=== PATIENT | female | born 1955 | race African-American/Black ===

== ENCOUNTER 2024-01-11 12:22 | Outpatient (AMB) | payer MEDICARE, MEDICAID, SELFPAY ==
[2024-01-11 12:25] VITALS: BP 110/84; PULSE 87; O2SAT 97; BMI 26.1
--- NOTE | 2024-01-11 12:25 | HO.NEPHOV_ITS ---
HPI HPI Comments History of Present Illness Details Jessica is a middle-aged woman with a history of bipolar disorder and she has been on lithium for a long time. She has chronic kidney disease and he is here for regular follow-up. She is history of COPD and she continues to smoke. History of cocaine use in the past. Next day of longstanding hypertension obesity. She is waiting dental extraction and needs renal clearance. [facility] Surgical History (Updated 01/11/24 @ 12:28 by Sravanthi Goodman) H/O laminectomy (~04/2023) Social History (Updated 01/11/24 @ 12:29 by Sravanthi Goodman) Patient Tobacco Use Status: Current someday Tobacco user Tobacco use type: Cigarette Use of substances other than those prescribed or required for medical reasons: No Vital Signs 01/11/24 12:25 Height 5 ft 9 in Weight 177 lb BMI 26.1 BP 110/84 Blood Pressure Location Lt brachial Position Sitting Pulse 87 Pulse Source Pulse Oximeter Pulse Oximetry (%) 97 Oxygen Delivery Method Room Air Physical Exam Vital Signs: Last Vital Signs Pulse 87 01/11/24 12:25 BP 110/84 01/11/24 12:25 Pulse Ox 97 01/11/24 12:25 Oxygen Delivery Method Room Air 01/11/24 12:25 BMI result Body Mass Index 26.1 Const General: comfortable Nutritional Appearance: well nourished Orientation/consciousness: patient oriented x3 HEENT Head: No normal to inspection Mouth: moist mucous membranes Neck Neck: Yes supple and Yes no JVD Resp Auscultation: clear to auscultation bilaterally, no rales and rub present Cardio Jugular venous distension: no JVD Palpation: no palpable S3 and no palpable S4 Heart sounds: no rubs GI Palpation (GI): Soft to palpation and nontender Percussion: No Fluid wave present General: Yes no CVA tenderness Back/Spine/Pelvis Back: no CVA tenderness Skin General skin exam: no rashes or lesions noted Neuro General: patient oriented x3 Extrem General: Yes no pedal edema and No clubbing Assessment & Plan Assessment & Plan (1) CKD (chronic kidney disease) stage 3, GFR 30-59 ml/min: Comment: 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 This is probably her baseline. Goal is to slow the progression of renal disease Continue to avoid nephrotoxic agents including NSAIDs. Keep intake more than output. She is currently on lithium. However renal function stable we will continue to monitor closely. (2) HTN (hypertension): Code(s): I10 - Essential (primary) hypertension Plan: Blood pressure is well controlled She is seen low-sodium diet Discussed weight loss. No changes were made to the antihypertensive regimen. Plan Note. From a renal standpoint there is no absolute contraindication for dental extraction. Orders: Orders Basic Metabolic Panel 3 Months I10 - Essential (primary) hypertension, N18.30 - Chronic kidney disease, stage 3 unspecified Complete Blood Count no Diff 3 Months I10 - Essential (primary) hypertension, N18.30 - Chronic kidney disease, stage 3 unspecified Coding Level of Care Code Est Pt Level 4 (33825) Diagnoses CKD (chronic kidney disease) stage 3, GFR 30-59 ml/min N18.30 HTN (hypertension) I10 Results Reviewed Results Reviewed: March 2023 - Cr 1.4 eGFR : 42 ml/mt Nephrology Results: No Data to Display
== END 2024-01-11 12:55 | disposition home or self-care (01) ==
PROVIDERS: PCP Nurse Practitioner Family; Visit Provider Internal Medicine Hypertension Specialist
DX: N18.30 Chronic kidney disease, stage 3 unspecified (principal); I10 Essential (primary) hypertension
CPT/HCPCS: 99214

== ENCOUNTER → 2024-01-11 12:22 | Outpatient (BNVA) | payer MEDICARE, MEDICAID, SELFPAY | PROVIDERS: PCP Nurse Practitioner Family; Visit Provider Internal Medicine Hypertension Specialist | DX: I10 Essential (primary) hypertension (principal); N18.30 Chronic kidney disease, stage 3 unspecified | CPT/HCPCS: 99212 ==

== ENCOUNTER 2024-12-02 11:29 | Outpatient (AMB) | payer MEDICARE, MEDICAID, SELFPAY ==
--- NOTE | 2024-12-02 10:52 | HO.NEPHOV ---
Vital Signs 12/02/24 11:34 Height 5 ft 9 in Weight 175 lb BMI 25.8 BP 170/108 H Blood Pressure Location Lt brachial Position Sitting Intake Visit Reasons: Follow up/ Conf Managed Security Sales Consultant Required: No Accompanied by: Care Corrdinator Allergies codeine Allergy (Unknown, Verified 12/02/24 11:38) Unknown Penicillins Allergy (Unknown, Verified 12/02/24 11:38) Unknown Medication List - Last Reconciled 12/02/24 by Wero Mensah MD albuterol sulfate 90 mcg/actuation inhalation PRN alprazolam mg PO TID PRN aspirin 81 mg PO DAILY atorvastatin 40 mg PO DAILY lithium carbonate 300 mg PO BID losartan 50 mg PO DAILY omeprazole 20 mg PO BID PRN tramadol 50 mg PO BID PRN umeclidinium 62.5 mcg/actuation (Incruse Ellipta) 1 inh inhalation DAILY HPI Comments Details: Jessica is a middle-aged woman with a history of bipolar disorder and she has been on lithium for a long time. She has chronic kidney disease and he is here for regular follow-up. She is history of COPD and she continues to smoke. History of cocaine use in the past. Next day of longstanding hypertension obesity. She comes to follow up after year. Blood pressure has been elevated at pulmonary rehab. Systolic blood pressure has been more than 200 mm Hg. She is not sure what medication she is on. [facility] Surgical History H/O laminectomy (~04/2023) Social History Patient Tobacco Use Status: Current someday Tobacco user Tobacco use type: Cigarette Physical Exam Vital Signs: Last Vital Signs BP 170/108 H 12/02/24 11:34 BMI result Body Mass Index 25.8 Const General: comfortable Nutritional Appearance: well nourished Orientation/consciousness: patient oriented x3 HEENT Head: No normal to inspection Mouth: moist mucous membranes Neck Neck: Yes supple and Yes no JVD Resp Auscultation: clear to auscultation bilaterally and no rales Cardio Jugular venous distension: no JVD Palpation: no palpable S3 and no palpable S4 Heart sounds: no rubs GI Palpation (GI): Soft to palpation and nontender Percussion: No Fluid wave present General: Yes no CVA tenderness Back/Spine/Pelvis Back: no CVA tenderness Skin General skin exam: no rashes or lesions noted Neuro General: patient oriented x3 Extrem General: Yes no pedal edema and No clubbing Results Reviewed Nephrology Results: Hgb 14.3 g/dl (12.0-16.0) 12/02/24 WBC 3.9 X10*3/uL (4.8-10.8) L 12/02/24 Plt Count 200 X10*3/uL (160-400) 12/02/24 Sodium 139 mmol/L (135-145) 12/02/24 Potassium 3.8 mmol/L (3.3-5.1) 12/02/24 Chloride 106 mmol/L (96-108) 12/02/24 Carbon Dioxide 23 mmol/L (22-29) 12/02/24 BUN 16 mg/dL (9-16) 12/02/24 Creatinine 1.31 mg/dL (0.5-1.4) 12/02/24 Calcium 9.3 mg/dL (8.4-10.2) 12/02/24 Assessment & Plan Assessment & Plan (1) HTN (hypertension): Code(s): I10 - Essential (primary) hypertension Category: Medical Plan: Blood pressure is well controlled She is seen low-sodium diet Discussed weight loss. No changes were made to the antihypertensive regimen. 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 Keep intake more than output. She is currently on lithium. However renal function stable we will continue to monitor closely. Plan Obtain 24 hour ambulatory blood pressure monitoring and readjust medications. I have asked her to bring all her medications tomorrow Orders: Orders Comprehensive Met. Panel 12/02/24 I10 - Essential (primary) hypertension, N18.30 - Chronic kidney disease, stage 3 unspecified Complete Blood Count no Diff 12/02/24 I10 - Essential (primary) hypertension, N18.30 - Chronic kidney disease, stage 3 unspecified AMB 24 HR B/P Monitor PLACEMENT 12/02/24 I10 - Essential (primary) hypertension Coding Level of Care Code Est Pt Level 4 (01291) Diagnoses HTN (hypertension) I10 CKD (chronic kidney disease) stage 3, GFR 30-59 ml/min N18.30
[2024-12-02 11:34] VITALS: BP 170/108; BMI 25.8
--- OUTSIDE RECORDS SUMMARY | 2024-12-02 13:42 | XMS_ITS | Clinical Summary ---
Author Organization [facility] Address [address] [place] [address] Care Team Providers Care Copyright Clerk Name Role Phone Unavailable Primary Care Provider Unavailabl e Source Comments PLEASE NOTE, if this patient is a minor, it may be UNLAWFUL to discuss sensitive information that is contained in these records (such as FAMILY PLANNING, MENTAL HEALTH or SUBSTANCE ABUSE) with the minor patient's parent or other person without the patient's specific authorization.[facility] Allergies Active Allergy Reactions Criticality Noted Date Comments Penicillins Rash,Swelling 02/18/2022 Social History Tobacco Use Types Packs/Day Years Used Date Smoking Tobacco: Never Assessed Social Connections Answer Date Recorded Connectedness 0 06/14/2024 Financial Resource Strain Answer Date R ecorded Financial Resource Strain 0 2021 Stress Answer Date Recorded Stress 0 02/18/2022 Physical Activity Answer Date Recorded Physical Activity 0 02/18/2022 Food Insecurity Answer Date Recorded Food 0 06/27/2024 Transportation Needs Answer Date Record ed Transportation 0 02/18/2022 Housing Stability Answer Date Recorded Housing 0 02/18/2022 Safety and Environment Answer Date Wilber rded Safety 0 02/18/2022 Utilities Answer Date Recorded Utilities 0 02/18/2022 Employment Answer Date Recorded Stress 0 06/14/2024 Comments Unknown Sex and Gender Information Value Date Recorded Sex Assigned at Not on file Legal Sex Female 6:41 AM PDT Gender Identity Not on file Sexual Orientation Not on file Last Filed Vital Signs Vital Sign Reading Time Taken Comments Blood Pressure 238/148 02/18/2022 10:30 AM EDT Pulse 71 02/18/2022 10:30 AM EDT Temperature - - Respiratory Rate - - Oxygen Saturation - - Inhaled Oxygen Concentration - - Weight - - Height - - Body Mass Index - - Plan of Treatment Health Maintenance Due Date Last Done Comments Diabetes Screening 1954 Hepatitis C Screening 1954 Lipid Screening 1954 Tobacco Screening 1954 Annual Preventive Care Visit 1972 Breast Cancer Screening (Mammogram) 1994 CT Colonography 1999 Colonoscopy 1999 Colorectal Cancer Screening 1999 FIT/gFOBT 1999 Fecal DNA 1999 Flexible Sigmoidoscopy 1999 Imm-Pneumococcal 65+ (2 of 2 - PCV) 2004 05/30/2002 Imm-Zoster, Recombinant (2 of 3) 12/19/2015 10/24/19 16 Bone Density Screening 2019 Falls Prevention 2019 Imm-DTaP/Tdap/Td (2 - Td or Tdap) 03/26/2022 012 Hypertension Screening (#1) 02/18/2023 Xuy-ORHSL-25 ( - season) 2024 Imm-Influenza (#1) 2024 07/01/2020, 1 , 08/10/2018, Additional history exists Alcohol and Drug Screen 10/02/2024 Depression Annual Screen 10/02/2024 Insurance [employer] Member Subscriber Plan / Payer (Ef fective 2022-Present) Name:Yung Giangaine Relation to Subscriber:Self Name:Rahat Jessica Payer ID:[id number] Group ID:Not on file Type:Indemnity Address: [place] [address] [place] [address] MEDICAID DENTAL FORMERLY [facility]
--- OUTSIDE RECORDS SUMMARY | 2024-12-02 13:42 | XMS_ITS | Clinical Summary ---
Author Organization [facility], Address [address] [place] [address] [place] [address] Phone Care Team Providers Care Crate Tier Name Role Phone Jason, Natividad OSMANY Primary Care Provider [phone] Allergies Active Allergy Reactions Criticality Noted Date Comments Codeine Other (see comments) 01/12/2021 Penicillins Other (see comments) 01/12/2021 Medications zolpidem (AMBIEN) 10 MG tablet zolpidem 10 mg tablet Active lithium 300 MG capsule lithium carbonate 300 mg capsule Active hydroCHLOROthia zide (HYDRODIURIL) 25 MG tablet Take 50 mg by mouth 1 (one) time each day Active Butalbital-APAP -Caffeine 50-300-40 MG capsule butalbital-aceta minophen-caffein e 50 mg-300 mg-40 mg capsule Active ALPRAZolam (XANAX) 2 MG tablet alprazolam 2 mg tablet Active senna (SENOKOT) 8.6 MG tablet senna 8.6 mg tablet TAKE 2 TABLETS BY MOUTH EVERY NIGHT AT BEDTIME NEEDED FOR CONSTIPATION Active Azelastine HCl 0.15 % solution Administer into affected nostril(s) 1 (one) time each day if needed 9 Active cetirizine (ZyrTEC) 10 MG tablet Take 10 mg by mouth 9 Active NIFEdipine XL (PROCARDIA XL) 90 MG 24 hr tablet Take 90 mg by mouth 1 (one) time each day 2 Active atorvastatin (LIPITOR) 40 MG tablet Take 40 mg by mouth 1 (one) time each day 2 Active traMADol (ULTRAM) 50 MG tablet Take 50 mg by mouth every 12 (twelve) hours if needed Active Active Problems Problem Noted Date Diagnosed Date Obesity 12/22/2021 Bipolar disorder 12/22/2021 Allergic rhinitis 12/22/2021 Hypercholesterolemia 12/22/2021 Malignant hypertension 12/22/2021 Migraine 12/22/2021 Sleep apnea 12/22/2021 Tubular adenoma of colon 12/22/2021 On lithium 05/26/2021 Chronic kidney disease stage 3 01/12/2021 Lumbar spondylosis 12/05/2016 Hypertension 06/17/2014 Musculoskeletal chest pain 02/05/2013 Encounters Date Type Department Care Team Description 10/04/2024 Documentation Only [facility] [address] [place] [address] Dominga Torres MA 10/03/2024 Documentation Only [facility] [address] [place] [address] Dominga Torres MA from Last 3 Months Family History Relation Status Comments Father Unknown Social History Tobacco Use Types Packs/Day Years Used Date Smoking Tobacco: Some Days Smokeless Tobacco: Never Tobacco Cessation:Ready to Q uit: Not Asked; Counseling Given: Not Answered Alcohol Use Standard Drinks/Week Comments No 0 (1 standard drink = 0.6 oz pur e alcohol) Comments Unknown Sex and Gender Information Value Date Recorded Sex Assigned at Not on file Legal Sex Female 5:23 PM EST Gender Identity Not on file Sexual Orientation Not on file Last Filed Vital Signs Vital Sign Reading Time Taken Comments Blood Pressure 162/98 03/15/2023 3:02 PM EDT Pulse 56 03/15/2023 3:02 PM EDT Temperature - - Respiratory Rate - - Oxygen Saturation 93% 03/15/2023 3:02 PM EDT Inhaled Oxygen Concentration - - Weight 77.6 kg (171 lb) 03/15/2023 3:02 PM EDT Height 175.3 cm (5' 9 ) 03/15/2023 3:02 PM EDT Body Mass Index 25.25 03/15/2023 3:02 PM EDT Plan of Treatment Upcoming Encounters Date Type Department Care Team (Late st Contact Info) Description 02/17/2025 2:00 PM EDT Office Visit [facility], [address] [facility] [place] [address] Jovanni Camargo MD [address] [place] [id number] Health Maintenance Due Date Last Done Comments Breast Cancer Screening 1954 Colorectal Cancer Screening: Annual FOBT 2003 Colorectal Cancer Screening: Colonoscopy 2003 Colorectal Cancer Screening: Sigmoidoscopy 2003 Pneumococcal Vaccine: 65+ Ye ars (2 of 2 - PCV) 05/30/2003 05/30/2002 Influenza Vaccine (#1) 2024 Hepatitis B Vaccine Aged Out No longe r eligible based on patient's age to complete this topic Insurance [place] Sub[place] Plan / Payer (Ef fective 2021-Present) Name:Jessica Giang Relation to Subscriber:Self Name:Jessica Giang Payer ID:Not on file Group ID:Not on file Type:Not on file Address: [place] [id number] MED[place]ID [place] Member Subscriber Plan / Payer ( fective 2024-Present) Name:Jessica Giang Relation to Subscriber:Self Name:Jessica Giang Payer ID:Not on file Group ID:Not on file Type:Not on file Address: [place] [id number] MEDICARE Care Teams Crate Tier Relationship Specialty Start Date End Date Natividad Gomez NP [address] [place] [address] [phone] PCP - General Nurse Practitioner 12/22/21
--- OUTSIDE RECORDS SUMMARY | 2024-12-02 13:42 | XMS_ITS | Encounter Summary ---
Author Organization [facility] Address [address] [place] [address] Phone Care Team Providers Care Gleason Operator Name Role Phone Natividad Gomez MERCHANDISE EXECUTIVE Primary Care Provider [phone] Encounter Details Date Type Department Care Team (Late Contact Info) Description 10/04/2024 Documentation Only [facility] [address] [place] [address] Dominga Torres [place] [address] [place] [address] Social History Tobacco Use Types Packs/Day Years Used Date Smoking Tobacco: Some Days Smokeless Tobacco: Never Alcohol Use Standard Drinks/Week Comments No 0 (1 standard drink = 0.6 oz pur e alcohol) Comments Unknown Sex and Gender Information Value Date Recorded Sex Assigned at Not on file Legal Sex Female 5:23 PM EST Gender Identity Not on file Sexual Orientation Not on file documented as of this encounter Plan of Treatment Upcoming Encounters Date Type Department Care Team (Late Contact Info) Description 02/17/2025 2:00 PM EDT Office Visit [facility] [address] [place] [address] Jovanni Camargo MD [address] [facility] [place] [address] documented as of this encounter Visit Diagnoses Not on filedocumented in this encounter Care Teams Gleason Operator Relationship Specialty Start Date End Date Natividad Gomez NP [address] [place] [id number] PCP - General Nurse Practitioner 12/22/21 documented as of this encounter
--- OUTSIDE RECORDS SUMMARY | 2024-12-02 13:42 | XMS_ITS | Encounter Summary ---
Author Organization [facility] Address [address] [place] [address] Phone Care Team Providers Care Nurse Quality Name Role Phone Natividad Gomez SALES TEACHER Primary Care Provider [phone] Encounter Details Date Type Department Care Team (Late Contact Info) Description 10/03/2024 Documentation Only [facility] [address] [place] [address] Dominga Torres [place] [address] [place] [address] Social History Tobacco Use Types [...] Visit [facility] [address] [address] Jovanni Camargo MD [address] [facility] [address] [place] [address] documented as of this encounter Visit Diagnoses Not on filedocumented in this encounter Care Teams Nurse Quality Relationship Specialty Start Date End Date Natividad Gomez NP [address] [place] [id number] PCP - General Nurse Practitioner 12/22/21 documented as of this encounter
--- OUTSIDE RECORDS SUMMARY | 2024-12-02 13:42 | XMS_ITS | Clinical Summary ---
Author Organization [facility] Address [address] [place] [address] Care Team Providers Care Terrazzo Laborer Name Role Phone Unavailable Primary Care Provider Unavailabl e Social History Tobacco Use Types Packs/Day Years Used Date Smoking Tobacco: Never Assessed Comments Unknown Sex and Gender Information Value Date Recorded Sex Assigned at Not on file Legal Sex Female 9:45 AM EST Gender Identity Not on file Sexual Orientation Not on file Plan of Treatment Health Maintenance Due Date Last Done Comments Breast Cancer Screening 1954 DTaP,Tdap,and Td Vaccines (1 - Tdap) 1973 Pneumococcal Vaccine: 50+ Ye ars (1 of 1 - PCV) 2004 Zoster Vaccines (1 of 2) 2004 COVID-19 Vaccine (2023-2 5 season) 2024 Influenza Vaccine (#1) 2024 RSV Immunization Patients 60 + Years Old (1 - 1-dose 75+ series) 2029 HIB Vaccines Aged Out No longer eligi ble based on patient's age to complete this topic HPV Vaccines Aged Out No longer eligi ble based on patient's age to complete this topic Hepatitis A Vaccines Aged Out No long er eligible based on patient's age to complete this topic Hepatitis B Vaccines Aged Out No long er eligible based on patient's age to complete this topic IPV Vaccines Aged Out No longer eligi ble based on patient's age to complete this topic MMR Vaccines Aged Out No longer eligi ble based on patient's age to complete this topic Meningococcal ACWY Vaccine Aged Out N o longer eligible based on patient's age to complete this topic Meningococcal B Vacine Aged Out No lo nger eligible based on patient's age to complete this topic RSV Immunization Patients Un elizabeth 20 months Aged Out No longer eligible b ased on patient's age to complete this topic Varicella Vaccines Aged Out No longer eligible based on patient's age to complete this topic
== END 2024-12-02 12:14 | disposition home or self-care (01) ==
PROVIDERS: PCP Nurse Practitioner Family; Visit Provider Internal Medicine Hypertension Specialist
DX: I10 Essential (primary) hypertension (principal); N18.30 Chronic kidney disease, stage 3 unspecified
CPT/HCPCS: 99214

== ENCOUNTER 2024-12-02 12:21 | Outpatient (REF) | payer MEDICARE, MEDICAID, SELFPAY ==
[2024-12-02 13:01] LABS: Hematocrit 42.6 % (37.0-47.0); Hemoglobin 14.3 g/dl (12.0-16.0); Mean Corpuscular HGB Conc 33.6 g/dl (31.0-35.0); Mean Corpuscular Hemoglobin 32.6 pg (27.0-33.0); Mean Platelet Volume 10.1 fL (9.4-12.3); Platelet Count 200 X10*3/uL (160-400); Red Blood Count 4.39 X10*6/uL (4.20-5.50); Red Cell Distribution Width 13.1 % (11.0-16.0); White Blood Count 3.9 X10*3/uL (4.8-10.8)
[2024-12-02 13:14] LABS: Alanine Aminotransferase 15 U/L (0-31); Albumin Level 4.4 g/dL (3.5-5.0); Alkaline Phosphatase 165 U/L (39-117); Anion Gap 14 (12-20); Aspartate Amino Transferase 27 U/L (5-31); Bilirubin Total 0.9 mg/dL (0.0-1.0); Blood Urea Nitrogen 16 mg/dL (9-16); Calcium 9.3 mg/dL (8.4-10.2); Carbon Dioxide 23 mmol/L (22-29); Chloride 106 mmol/L (96-108); Estimated Glomerular Filt Rate 40; Glucose Random 83 mg/dL (60-115); Potassium 3.8 mmol/L (3.3-5.1); Sodium 139 mmol/L (135-145); Total Protein 7.9 g/dL (6.5-8.0)
== END 2024-12-02 12:22 | disposition home or self-care (01) ==
LOC: HO.10HDL 12:21
PROVIDERS: Visit Provider Internal Medicine Hypertension Specialist
DX: I10 Essential (primary) hypertension (principal); N18.30 Chronic kidney disease, stage 3 unspecified
CPT/HCPCS: 36415; 80053; 85027; 99212

== ENCOUNTER → 2024-12-03 11:55 | Outpatient (BNVA) | payer MEDICARE, MEDICAID, SELFPAY | PROVIDERS: PCP Nurse Practitioner Family; Visit Provider Internal Medicine Hypertension Specialist | DX: I12.9 Hypertensive chronic kidney disease with stage 1 through stage 4 chronic kidney disease, or unspecified chronic kidney disease (principal); N18.30 Chronic kidney disease, stage 3 unspecified | CPT/HCPCS: 93786; 93788; 99212 ==

== ENCOUNTER 2024-12-03 12:03 | Outpatient (AMB) | payer MEDICARE, MEDICAID, SELFPAY ==
--- NOTE | 2024-12-03 12:04 | HO.NEPHOV_ITS ---
Vital Signs 12/03/24 12:04 Height 5 ft 9 in Intake Visit Reasons: BPM results Petroleum Production Engineer Required: No Accompanied by: Self / Same As Patient Allergies codeine Allergy (Unknown, Verified 12/02/24 11:38) Unknown Penicillins Allergy (Unknown, Verified 12/02/24 11:38) Unknown Medication List - Last Reconciled 12/03/24 by Wero Mensah MD albuterol sulfate 90 mcg/actuation inhalation PRN alprazolam mg PO TID PRN aspirin 81 mg PO DAILY atorvastatin 40 mg PO DAILY lithium carbonate 300 mg PO BID losartan 50 mg PO BID omeprazole 20 mg PO BID PRN tramadol 50 mg PO BID PRN umeclidinium 62.5 mcg/actuation (Incruse Ellipta) 1 inh inhalation DAILY HPI Comments Details: Jessica is a middle-aged woman with a history of bipolar disorder and she has been on lithium for a long time. She has chronic kidney disease and he is here for regular follow-up. She is history of COPD and she continues to smoke. History of cocaine use in the past. Next day of longstanding hypertension obesity. She comes to follow up after year. Blood pressure has been elevated at pulmonary rehab. Systolic blood pressure has been more than 200 mm Hg. She is not sure what medication she is on. 12/03/2024. Jessica underwent 24 hour ambulatory blood pressure monitoring. She brought in all her medications. She is on losartan 50 mg q.d.. She takes hydrochlorothiazide. Dosage unknown. She is not on any other antihypertensive medication. [facility] Surgical History H/O laminectomy (~04/2023) Social History Patient Tobacco Use Status: Current someday Tobacco user Tobacco use type: Cigarette Physical Exam Const General: comfortable Nutritional Appearance: well nourished Orientation/consciousness: patient oriented x3 HEENT Head: No normal to inspection Mouth: moist mucous membranes Neck Neck: Yes supple and Yes no JVD Resp Auscultation: clear to auscultation bilaterally and no rales Cardio Jugular venous distension: no JVD Palpation: no palpable S3 and no palpable S4 Heart sounds: no rubs GI Palpation (GI): Soft to palpation and nontender Percussion: No Fluid wave present General: Yes no CVA tenderness Back/Spine/Pelvis Back: no CVA tenderness Skin General skin exam: no rashes or lesions noted Neuro General: patient oriented x3 Extrem General: Yes no pedal edema and No clubbing Results Reviewed Nephrology Results: Hgb 14.3 g/dl (12.0-16.0) 12/02/24 WBC 3.9 X10*3/uL (4.8-10.8) L 12/02/24 Plt Count 200 X10*3/uL (160-400) 12/02/24 Sodium 139 mmol/L (135-145) 12/02/24 Potassium 3.8 mmol/L (3.3-5.1) 12/02/24 Chloride 106 mmol/L (96-108) 12/02/24 Carbon Dioxide 23 mmol/L (22-29) 12/02/24 BUN 16 mg/dL (9-16) 12/02/24 Creatinine 1.31 mg/dL (0.5-1.4) 12/02/24 Calcium 9.3 mg/dL (8.4-10.2) 12/02/24 Assessment & Plan Assessment & Plan (1) HTN (hypertension): Code(s): I10 - Essential (primary) hypertension Category: Medical Plan: Blood pressure is suboptimal Based on 24 hour ABP M I will increase losartan to 50 mg b.i.d.. Keep on hydrochlorothiazide 25 mg daily. 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 Keep intake more than output. She is currently on lithium. However renal function stable we will continue to monitor closely. Medications: New losartan 50 mg PO BID 180 tabs 1RF Coding Level of Care Code Est Pt Level 4 (54358) Diagnoses HTN (hypertension) I10 CKD (chronic kidney disease) stage 3, GFR 30-59 ml/min N18.30
== END 2024-12-03 12:16 | disposition home or self-care (01) ==
LOC: HO.HKA 12:03
PROVIDERS: PCP Nurse Practitioner Family; Visit Provider Internal Medicine Hypertension Specialist
DX: I10 Essential (primary) hypertension (principal); N18.30 Chronic kidney disease, stage 3 unspecified
CPT/HCPCS: 99214

== ENCOUNTER 2024-12-17 13:28 | Outpatient (AMB) | payer MEDICARE, MEDICAID, SELFPAY ==
[2024-12-17 13:28] VITALS: BP 142/88; BMI 25.7
--- NOTE | 2024-12-17 13:28 | HO.NEPHOV ---
Vital Signs 12/17/24 13:28 Height 5 ft 9 in Weight 174 lb BMI 25.7 BP 142/88 H Blood Pressure Location Rt brachial Position Sitting Pulse Source Pulse Oximeter Oxygen Delivery Method Room Air Intake Visit Reasons: 2 weeks fu/ Conf Engagement Engineer Required: No Accompanied by: Self / Same As Patient Allergies codeine Allergy (Unknown, Verified 12/17/24 13:31) Unknown Penicillins Allergy (Unknown, Verified 12/17/24 13:31) Unknown Medication List - Last Reconciled 12/17/24 by Wero Mensah MD albuterol sulfate 90 mcg/actuation inhalation PRN alprazolam mg PO TID PRN aspirin 81 mg PO DAILY atorvastatin 40 mg PO DAILY esomeprazole magnesium 20 mg PO QAM hydrochlorothiazide 25 mg PO DAILY lithium carbonate 300 mg PO BID losartan 50 mg PO BID omeprazole 20 mg PO BID PRN tramadol 50 mg PO BID PRN umeclidinium 62.5 mcg/actuation (Incruse Ellipta) 1 inh inhalation DAILY HPI Comments Details: Jessica is a middle-aged woman with a history of bipolar disorder and she has been on lithium for a long time. She has chronic kidney disease and he is here for regular follow-up. She is history of COPD and she continues to smoke. History of cocaine use in the past. Next day of longstanding hypertension obesity. She comes to follow up after year. Blood pressure has been elevated at pulmonary rehab. Systolic blood pressure has been more than 200 mm Hg. She is not sure what medication she is on. 12/03/2024. Jessica underwent 24 hour ambulatory blood pressure monitoring. She brought in all her medications. She is on losartan 50 mg q.d.. She takes hydrochlorothiazide. Dosage unknown. She is not on any other antihypertensive medication. 12/17/24 Overall doing well [facility] Surgical History H/O laminectomy (~04/2023) Social History Patient Tobacco Use Status: Current someday Tobacco user Tobacco use type: Cigarette Physical Exam Vital Signs: Last Vital Signs BP 142/88 H 12/17/24 13:28 Oxygen Delivery Method Room Air 03/18/25 13:28 BMI result Body Mass Index 25.7 Const General: comfortable Nutritional Appearance: well nourished Orientation/consciousness: patient oriented x3 HEENT Head: No normal to inspection Mouth: moist mucous membranes Neck Neck: Yes supple and Yes no JVD Resp Auscultation: clear to auscultation bilaterally and no rales Cardio Jugular venous distension: no JVD Palpation: no palpable S3 and no palpable S4 Heart sounds: no rubs GI Palpation (GI): Soft to palpation and nontender Percussion: No Fluid wave present General: Yes no CVA tenderness Back/Spine/Pelvis Back: no CVA tenderness Skin General skin exam: no rashes or lesions noted Neuro General: patient oriented x3 Extrem General: Yes no pedal edema and No clubbing Results Reviewed Nephrology Results: Hgb 14.3 g/dl (12.0-16.0) 12/02/24 WBC 3.9 X10*3/uL (4.8-10.8) L 12/02/24 Plt Count 200 X10*3/uL (160-400) 12/02/24 Sodium 139 mmol/L (135-145) 12/02/24 Potassium 3.8 mmol/L (3.3-5.1) 12/02/24 Chloride 106 mmol/L (96-108) 12/02/24 Carbon Dioxide 23 mmol/L (22-29) 12/02/24 BUN 16 mg/dL (9-16) 12/02/24 Creatinine 1.31 mg/dL (0.5-1.4) 12/02/24 Calcium 9.3 mg/dL (8.4-10.2) 12/02/24 Assessment & Plan Assessment & Plan (1) HTN (hypertension): Code(s): I10 - Essential (primary) hypertension Category: Medical Plan: Blood pressure is better controlled.l Based on 24 hour ABP M I will continue losartan to 50 mg b.i.d.. Keep on hydrochlorothiazide 25 mg daily. 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 Keep intake more than output. She is currently on lithium. However renal function stable we will continue to monitor closely. Orders: Orders Basic Metabolic Panel 4 Months N18.30 - Chronic kidney disease, stage 3 unspecified Coding Level of Care Code Est Pt Level 4 (04875) Diagnoses HTN (hypertension) I10 CKD (chronic kidney disease) stage 3, GFR 30-59 ml/min N18.30
--- OUTSIDE RECORDS SUMMARY | 2024-12-17 15:52 | XMS_ITS | Clinical Summary ---
Author Organization [facility] ity Address [address] [place] [address] Care Team Providers Care Industrial Spray Painter Name Role Phone Unavailable Primary Care Provider [...]
--- OUTSIDE RECORDS SUMMARY | 2024-12-17 15:52 | XMS_ITS | Encounter Summary ---
Author Organization [facility] Address [address] [place] [address] Phone Care Team Providers Care Display Artist Name Role Phone Natividad Gomez SPRINKLER HELPER Primary Care Provider Encounter Details Date Type Department Care Team (Late Contact Info) Description 10/04/2024 Documentation Only [facility] [address] [place] [address] Dominga Torres DC [address] [place] [address] Social History Tobacco Use Types [...] Visit [facility] [address] [place] [address] Jovanni Camargo MD [address] [place] [address] documented as of this encounter Visit Diagnoses Not on filedocumented in this encounter Care Teams Display Artist Relationship Specialty Start Date End Date Natividad Gomez NP [address] [place] [id number] PCP - General Nurse Practitioner 12/22/21 documented as of this encounter
--- OUTSIDE RECORDS SUMMARY | 2024-12-17 15:52 | XMS_ITS | Clinical Summary ---
Author Organization [facility] [place], Address [address] [place] [address] [place] [address] Phone Care Team Providers Care Assembler Ping Pong Table Name Role Phone Jason, Natividad OSMANY Primary Care Provider Allergies Active Allergy Reactions Criticality Noted Date [...] Only [facility] [address] [place] [address] Dominga Torres MA 10/03/2024 Documentation Only [facility] [address] [place] [address] Dominga Torres [place] from Last 3 Months [...] Visit [facility] [place], [address] [address] Jovanni Camargo MD [address] [place] [id number] Health Maintenance Due Date Last Done Comments Breast Cancer Screening 1955 Colorectal Cancer Screening: Annual FOBT 2003 Colorectal Cancer Screening: Colonoscopy 2003 Colorectal Cancer Screening: Sigmoidoscopy 2003 Pneumococcal Vaccine: 65+ Years (2 of 2 - PCV) 05/30/2003 05/30/2002 Influenza Vaccine (#1) 2024 0, 09/30/2019, 06/18/2013, Additional history exists Hepatitis B Vaccine Aged Out No longe r eligible based on patient's age to complete this topic Insurance [place] Care Teams Assembler Ping Pong Table Relationship Specialty Start Date End Date Natividad Gomez NP [address] [place] [id number] PCP - General Nurse Practitioner 12/22/21
--- OUTSIDE RECORDS SUMMARY | 2024-12-17 15:52 | XMS_ITS | Clinical Summary ---
Author Organization [facility] Address [address] [place] [address] Care Team Providers Care Fitness Technician Name Role Phone Unavailable Primary Care Provider [...] 1955 Lipid Screening 1954 Tobacco Screening 1954 Breast Cancer Screening (Mammogram) 1994 CT Colonography 1999 Colonoscopy 1999 Colorectal Cancer Screening 1999 FIT/gFOBT 1999 Fecal DNA 1999 Flexible Sigmoidoscopy 1999 Imm-Pneumococcal 65+ (2 of 2 - PCV) 2004 05/30/2002 Imm-Zoster, Recombinant (2 of 3) 12/19/2015 10/24/19 16 Bone Density Screening 2019 Falls Prevention 2019 Imm-DTaP/Tdap/Td (2 - Td or Tdap) 03/26/2022 012 Hypertension Screening (#1) 02/18/2023 Pmu-DWHFQ-16 (1 - 2023- season) 2024 Imm-Influenza (#1) 2024 07/01/2020, 1 , 08/10/2018, Additional history exists Alcohol and Drug Screen 10/02/2024 Depression Annual Screen 10/02/2024 Insurance [employer] [place] Member Subscriber Plan / Payer (Ef fective 2022-Present) Name:Jessica Giang Relation to Subscriber:Self Name:Jessica Giang Payer ID:[id number] Group ID:Not on file Type:Medicaid Address: [place] [id number] [facility]
--- OUTSIDE RECORDS SUMMARY | 2024-12-17 15:52 | XMS_ITS | Encounter Summary ---
Author Organization [facility] Address [address] [place] [address] Phone Care Team Providers Care Bag Loader Name Role Phone Natividad Gomez CALENDER FEEDER Primary Care Provider [phone] Encounter Details Date Type Department Care Team (Late Contact Info) Description 10/03/2024 Documentation Only [facility] [address] [place] [address] Dominga Torres [place] [address] [place] [address] Social History Tobacco Use Types [...] Visit [facility] [address] [place] [address] Jovanni Camrago MD [address] [place] [address] documented as of this encounter Visit Diagnoses Not on filedocumented in this encounter Care Teams Bag Loader Relationship Specialty Start Date End Date Natividad Gomez NP [address] [place] [phone] PCP - General Nurse Practitioner 12/22/21 documented as of this encounter
== END 2024-12-17 13:39 | disposition home or self-care (01) ==
LOC: HO.HKA 13:29
PROVIDERS: PCP Nurse Practitioner Family; Visit Provider Internal Medicine Hypertension Specialist
DX: I10 Essential (primary) hypertension (principal); N18.30 Chronic kidney disease, stage 3 unspecified
CPT/HCPCS: 99214

== ENCOUNTER → 2024-12-17 13:28 | Outpatient (BNVA) | payer MEDICARE, MEDICAID, SELFPAY | PROVIDERS: PCP Nurse Practitioner Family; Visit Provider Internal Medicine Hypertension Specialist | DX: I12.9 Hypertensive chronic kidney disease with stage 1 through stage 4 chronic kidney disease, or unspecified chronic kidney disease (principal); N18.30 Chronic kidney disease, stage 3 unspecified | CPT/HCPCS: 99212 ==

== ENCOUNTER 2025-04-03 13:30 | Outpatient (AMB) | payer MEDICARE, MEDICAID, SELFPAY ==
--- NOTE | 2025-04-03 13:37 | HO.NEPHOV ---
Vital Signs 04/03/25 13:38 Height 5 ft 9 in Weight 161 lb 2 oz BMI 23.8 BP 122/88 Blood Pressure Location Rt brachial Position Sitting Pulse 74 Pulse Source Pulse Oximeter Pulse Oximetry (%) 98 Oxygen Delivery Method Room Air Intake Visit Reasons: 4 MO FU-Conf Fish Icer Required: No Accompanied by: Self / Same As Patient Allergies codeine Allergy (Unknown, Verified 04/03/25 13:38) Unknown Penicillins Allergy (Unknown, Verified 04/03/25 13:38) Unknown Medication List - Last Reconciled 04/03/25 by Wero Mensah MD albuterol sulfate 90 mcg/actuation inhalation PRN alprazolam mg PO TID PRN aspirin 81 mg PO DAILY atorvastatin 40 mg PO DAILY esomeprazole magnesium 20 mg PO QAM hydrochlorothiazide 25 mg PO DAILY lithium carbonate 300 mg PO BID losartan 50 mg PO BID omeprazole 20 mg PO BID PRN tramadol 50 mg PO BID PRN umeclidinium 62.5 mcg/actuation (Incruse Ellipta) 1 inh inhalation DAILY HPI Comments Details: Jessica is a middle-aged woman with a history of bipolar disorder and she has been on lithium for a long time. She has chronic kidney disease and he is here for regular follow-up. She is history of COPD and she continues to smoke. History of cocaine use in the past. Next day of longstanding hypertension obesity. She comes to follow up after year. Blood pressure has been elevated at pulmonary rehab. Systolic blood pressure has been more than 200 mm Hg. She is not sure what medication she is on. 12/03/2024. Jessica underwent 24 hour ambulatory blood pressure monitoring. She brought in all her medications. She is on losartan 50 mg q.d.. She takes hydrochlorothiazide. Dosage unknown. She is not on any other antihypertensive medication. 12/17/24 Overall doing well 04/03/25 The patient is a 70-year-old female presenting with hypertension and chronic kidney disease. Her hypertension is well-controlled with hydrochlorothiazide and losartan, maintaining a blood pressure of 122/88 mmHg. Chronic kidney disease has improved, with current kidney function at 36%, and she has discontinued lithium to prevent further renal impairment. [facility] Surgical History H/O laminectomy (~04/2023) Social History Patient Tobacco Use Status: Current someday Tobacco user Tobacco use type: Cigarette Physical Exam Vital Signs: Last Vital Signs Pulse 74 04/03/25 13:38 BP 122/88 04/03/25 13:38 Pulse Ox 98 04/03/25 13:38 Oxygen Delivery Method Room Air 04/03/25 13:38 BMI result Body Mass Index 23.8 Results Reviewed Results Reviewed: 03/31/25 cr 1.54 eGFR 36 Nephrology Results: Hgb, (12.0-16.0) 14.3 g/dl 12/02/24 WBC, (4.8-10.8) 3.9 X10*3/uL L 12/02/24 Plt Count, (160-400) 200 X10*3/uL 12/02/24 Sodium, (135-145) 139 mmol/L 12/02/24 Potassium, (3.3-5.1) 3.8 mmol/L 12/02/24 Chloride, (96-108) 106 mmol/L 12/02/24 Carbon Dioxide, (22-29) 23 mmol/L 12/02/24 BUN, (9-16) 16 mg/dL 12/02/24 Creatinine, (0.5-1.4) 1.31 mg/dL 12/02/24 Calcium, (8.4-10.2) 9.3 mg/dL 12/02/24 Assessment & Plan Assessment & Plan (1) HTN (hypertension): Code(s): I10 - Essential (primary) hypertension Category: Medical Plan: Blood pressure is better controlled.l Based on 24 hour ABP M I will continue losartan to 50 mg b.i.d.. Keep on hydrochlorothiazide 25 mg daily. 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 Keep intake more than output. She is currently off lithium. -renal function stable we will continue to monitor closely. Orders: Orders Basic Metabolic Panel 4 Months N18.30 - Chronic kidney disease, stage 3 unspecified Comprehensive Met. Panel 4 Months N18.30 - Chronic kidney disease, stage 3 unspecified Coding Level of Care Code Est Pt Level 4 (53626) Diagnoses HTN (hypertension) I10 CKD (chronic kidney disease) stage 3, GFR 30-59 ml/min N18.30
[2025-04-03 13:38] VITALS: BP 122/88; PULSE 74; O2SAT 98; BMI 23.8
--- OUTSIDE RECORDS SUMMARY | 2025-04-03 13:38 | XMS_ITS | Clinical Summary ---
Author Organization [facility] ity Address [address] [place] [address] Care Team Providers Care Patient Care Assistant Name Role Phone Unavailable Primary Care Provider [...] Vaccines (1 of 2) 2004 COVID-19 Vaccine ( - 2023-2 5 season) 2024 Influenza Vaccine (Season Ended) 2025 RSV Immunization Adult Patie nts (1 - 1-dose 75+ series) 2029 HIB [...] age to complete this topic Meningococcal B Vaccine Aged Out No l onger eligible based on patient's age to complete this topic RSV Immunization Patients Un elizabeth 20 months Aged Out No longer eligible b ased on patient's age to complete this topic Varicella Vaccines Aged Out No longer eligible based on patient's age to complete this topic
--- OUTSIDE RECORDS SUMMARY | 2025-04-03 13:38 | XMS_ITS | Clinical Summary ---
Author Organization [facility] Address [address] [place] [address] Care Team Providers Care Validation Analyst Name Role Phone Unavailable Primary Care Provider [...] Mass Index - - Plan of Treatment Not on file Insurance [facility] MEDICAID [place] [id number]
--- OUTSIDE RECORDS SUMMARY | 2025-04-03 13:38 | XMS_ITS | Clinical Summary ---
Author Organization [facility], Address [address] [place] [address] [place] [address] Phone Care Team Providers Care Surveyor Helper Rod Name Role Phone Jason, Natividad OSMANY Primary Care Provider [phone] Allergies Active Allergy Reactions Criticality Noted Date [...] 12/05/2016 Hypertension 06/17/2014 Musculoskeletal chest pain 02/05/2013 Immunizations Immunization Administration Dates Next Due DT 05/30/2002 Influenza (IM) Preservative Free 07/01/2020,09/03,06/18/2013,06/27/2012 Pfizer SARS-COV-2 02/18/2021,01/27/2021 Pneumococcal Polysaccharide 05/30/2002 Tdap 03/26/2012 Zoster 10/24/2015 Family History Relation Status Comments Father Unknown [...] 03/15/2023 3:02 PM EDT Plan of Treatment Health Maintenance Due Date Last Done Comments Breast Cancer Screening 1955 Colorectal Cancer Screening: Annual FOBT 2003 Colorectal Cancer Screening: Colonoscopy 2003 Colorectal Cancer Screening: Sigmoidoscopy 2003 Pneumococcal Vaccine: 50+ Years (2 of 2 - PCV) 05/30/2003 05/30/2002 Influenza Vaccine (Season Ended) 2025 07/01/2020, 09/30/2019, 06/18/2013, Additional history exists Pneumococcal Vaccine: Peds (0 to 5 Years) and At-Risk Patients (6 to 49 Years) Discontinued 05/30/2002 Hepatitis B Vaccine Aged Out No longe r eligible based on patient's age to complete this topic Insurance Medicare Medicaid [place] Medicare Medicaid [place] Medicaid [place] Medicare Care Teams Surveyor Helper Rod Relationship Specialty Start Date End Date Natividad Gomez NP [address] [place] [id number] PCP - General Nurse Practitioner 12/22/21
--- OUTSIDE RECORDS SUMMARY | 2025-04-03 13:39 | XMS_ITS | Data Portability ---
Author Organization [place] - [facility] Address [address] [place] [id number] Care Team Providers Care Oracle Ebs Consultant Name Role Phone CEDBLANCA ROSALES Primary Care Provider [phone] Assessment Encounter Date Assessment Date Assessment LastModified by Organization Details LastModified Time 12/26/2019 12/26/2019 Overview/History :This is a 64-year-old female that is new to [facility]. She has a medical history significant for coronary artery disease status post OH in the past, hyperlipidemia, hypertension, kidney disease and depression. She contacted her PCP who in turn contact [facility] for evaluation of right lower extremity swelling. She denies any history of blood clots, denies history of heart failure and also denies any recent trauma or injury to this area. She reports that the area feels tight, she has limited range of motion due to prior foot surgery in this extremity. Exam: On exam patient is awake and alert, afebrile, noted to be hypertensive. Patient reports she took most of her medications this morning but not all of them. Lung sounds clear to auscultation bilaterally, heart rate regular no palpable peripheral pulses. She was noted to have trace to 1+ right ankle edema with mild pitting edema no swelling to her calf. No swelling of the left leg shimmy. Negative homen sign. Limited range of motion of right ankle due to prior foot surgery. DDx considered, but not limited to:Swelling is most likely due to dietary indiscretion in increased sodium intake. Considered DVT however swelling is isolated to the ankle N negative sean sign. Considered congestive heart failure however patient has no history of this, no orthopnea and no crackles. Patient did tell me she cannot remember she had any trauma to this area, it is possible she may have sprained her ankle and has some residual soft tissue inflammation. Cellulitis not likely, no erythema or drainage in patient is afebrile. Work up/Results: Plan/Discussion: I did discuss with patient that I have low suspicion for DVT or blood clot in her leg. We reviewed signs and symptoms of this which includes calf swelling and calf tenderness. I did discuss with patient the importance of trying to adhere to a low sodium diet, less than 2000 mg in a day. I did explain this would also help with her blood pressure. I did encourage her to stop smoking as smoking does put her at higher risk for blood clots. I did explain to patient that if she were to have worsening swelling or pain she should contact [facility] or her PCP for reevaluation. Patient verbalized understanding of discharge instructions. In order to obtain further information and compare any laboratory results/values, I have accessed patient records on the [email or web address]. This information was pertinent in my medical decision making today. [email or web address] Not available 12/26/2019 16:17:39 01/14/2021 01/14/2021 Time On Scene with Patient: 01:00:21 DDX: hypertensive urgency, epistaxis, coagulopathy, Pt has been having self-limiting nose bleeds for the past 4 days. There are no other symptoms, no other areas of bleeding noted. Coagulapathy seems unlikely but to evaluate further, will obtain CBC with diff, kidney function. Further will evaluate patient's lithium level and assess PTH intact as this was requested by patient's saddle stitching machine operator Dr. Mensah. No active bleeding during visit with patient so will not pursue nasal packing or other intervention. Pt was advised to seek the ED with any bleeding that doesn't stop after 15 minutes, onset of headache, chest pain, weakness, dizziness shortness of breath or feeling worse. Pt was agreeable to this. She demonstrated safe ambulation without any assist in apartment and walked DH staff to door. Pt denies complaints at completion of visit. Not available 01/14/2021 19:53:06 Plan of Treatment Reminders Order Date Submit Date Provider Last Modified By Organization Details Last Modified Time Details Appointments None recorded. Lab CBC w/ auto diff 2020 021 GIL [facility] (Centralized Electronic Ordering - All Locations), Patient Can Go To The Location Of Their Choice, [address] 17:14:27 bun (blood urea nitrogen), serum or plasma 2020 GIL [facility] (Centralized Electronic Ordering - All Locations), Patient Can Go To The Location Of Their Choice, 18:01:16 creatinine, serum or plasma 2020 021 GIL [facility] (Centralized Electronic Ordering - All Locations), Patient Can Go To The Location Of Their Choice, 18:01:20 PTH (parathyroi d hormone), intact, serum or plasma 2020 GIL [facility] (Centralized Electronic Ordering - All Locations), Patient Can Go To The Location Of Their Choice, 19:49:47 electrolyte panel, serum 2020 GIL [facility] (Centralized Electronic Ordering - All Locations), Patient Can Go To The Location Of Their Choice, 18:01:24 lithium, serum 2020 GIL [facility] (Centralized Electronic Ordering - All Locations), Patient Can Go To The Location Of Their Choice, 18:03:35 Referral None recorded. Procedures None recorded. Surgeries None recorded. Imaging None recorded. Medication Orders None recorded. Patient TargetsNo targets recorded. Patient Instructions Encounter Date Encounter Id Patient Instructions Last Modified By Organization Details Last Modified Time 12/26/2019 [id number] Patient given pe r discharge instructions, in the setting of coronavirus pandemic woman brought into home. [email or web address] Not available 12/26/2019 16:18:13 01/14/2021 [id number] [facility] came to your home to evaluate you for frequent nosebleeds. You have seen your PCP and your kidney specialist . We also called your pharmacy who did not have a new prescription for your blood pressure. You have been taking HCTZ every day and nifedipine. The pharmacy does not have these prescriptions since September of 2020. Your blood pressure today is 170/100. You are not having any bleeding now. We liz blood to send to [facility]. We also ordered tests that your Kidney doctor wanted. - Dr Mensah will get a copy of these results. Please follow up with your PCP and make sure you check your blood pressure daily. If you experience any worsening bleeding, headache, chest pain or feeling worse, go to the emergency department,. [facility]. We cannot always find the exact cause of your symptoms during your initial visit. Please follow up with your primary care provider or specialist to be rechecked or seek medical attention if your symptoms do not go away or get worse. If you develop any new or worsening symptoms and need after hours care, please go to nearest ER and/or call 911. If you have additional concerns or develop a change in your condition between 8am-10pm, please call [facility] at [phone] to help navigate your care. Not available 01/14/2021 15:21:47 Reason for Referral None Reported. Results Created Date Observation Date Name Description Value Unit Range Abnormal Flag Note LastModifiedBy Organization Detail LastModifiedTime 01/15/2001/14/2021 CBC w/ auto diff WBC 5.6 K/mm3 (4.0-1 1.0) Not Available [facility] (Centralized Electronic Ordering - All Locations) Patient Can Go To The Location Of Their Choice, 01/14/2021 17:14:27 01/15/2001/14/2021 CBC w/ auto diff RBC 4.07 M/mm3 (4.20- 5.40) low Not Available [facility] (Centralized Electronic Ordering - All Locations) Patient Can Go To The Location Of Their Choice, 01/14/2021 17:14:27 01/15/2001/14/2021 CBC w/ auto diff HGB 13.8 gm/dL (11.7- 15.5) Not Available [facility] (Centralized Electronic Ordering - All Locations) Patient Can Go To The Location Of Their Choice, 01/14/2021 17:14:27 01/15/2001/14/2021 CBC w/ auto diff HCT 42.4 % (35.7- 45.8) Not Available [facility] (Centralized Electronic Ordering - All Locations) Patient Can Go To The Location Of Their Choice, 01/14/2021 17:14:27 01/15/2001/14/2021 CBC w/ auto diff MCV 104.2 fL (80.0- 100.0) high Not Available [facility] (Centralized Electronic Ordering - All Locations) Patient Can Go To The Location Of Their Choice, 01/14/2021 17:14:01/15/2001/14/2021 CBC w/ auto diff MCH 33.9 pg (27.0- 34.0) Not Available [facility] (Centralized Electronic Ordering - All Locations) Patient Can Go To The Location Of Their Choice, 01/14/2021 17:14:01/15/2001/14/2021 CBC w/ auto diff MCHC 32.5 g/dL (33.0- 37.0) low Not Available [facility] (Centralized Electronic Ordering - All Locations) Patient Can Go To The Location Of Their Choice, 01/14/2021 17:14:01/15/2001/14/2021 CBC w/ auto diff plt 202 K/mm3 (150-4 60) Not Available [facility] (Centralized Electronic Ordering - All Locations) Patient Can Go To The Location Of Their Choice, 01/14/2021 17:14:01/15/2001/14/2021 CBC w/ auto diff RDW-SD 50.0 fL (<47.0 ) high Not Available [facility] (Centralized Electronic Ordering - All Locations) Patient Can Go To The Location Of Their Choice, 01/14/2021 17:14:01/15/2001/14/2021 CBC w/ auto diff MPV 10.6 fL (9.4-1 2.4) Not Available [facility] (Centralized Electronic Ordering - All Locations) Patient Can Go To The Location Of Their Choice, 01/14/2021 17:14:01/15/2001/14/2021 CBC w/ auto diff automated NRBC 0.0 #/100 _WBC' s Not Available [facility] (Centralized Electronic Ordering - All Locations) Patient Can Go To The Location Of Their Choice, 01/14/2021 17:14:01/15/2001/14/2021 CBC w/ auto diff abs. NRBC 0.0 K/mm3 Not Available [facility] (Centralized Electronic Ordering - All Locations) Patient Can Go To The Location Of Their Choice, 01/14/2021 17:14:01/15/2001/14/2021 CBC w/ auto diff neut # 3.8 K/mm3 (1.3-7 .0) Not Available [facility] (Centralized Electronic Ordering - All Locations) Patient Can Go To The Location Of Their Choice, 01/14/2021 17:14:27 01/15/2001/14/2021 CBC w/ auto diff lymph # 1.4 K/mm3 (0.8-3 .1) Not Available [facility] (Centralized Electronic Ordering - All Locations) Patient Can Go To The Location Of Their Choice, 01/14/2021 17:14:01/15/2001/14/2021 CBC w/ auto diff mono# 0.4 K/mm3 (0.4-0 .9) Not Available [facility] (Centralized Electronic Ordering - All Locations) Patient Can Go To The Location Of Their Choice, 01/14/2021 17:14:01/15/2001/14/2021 CBC w/ auto diff eo # 0.1 K/mm3 (0.0-0 .4) Not Available [facility] (Centralized Electronic Ordering - All Locations) Patient Can Go To The Location Of Their Choice, 01/14/2021 17:14:01/15/2001/14/2021 CBC w/ auto diff baso # 0.0 K/mm3 (0.0-0 .1) Not Available [facility] (Centralized Electronic Ordering - All Locations) Patient Can Go To The Location Of Their Choice, 01/14/2021 17:14:01/15/2001/14/2021 CBC w/ auto diff abs. imm gran 0.0 K/mm3 Not Available [facility] ([facility] Ordering - All Locations) Patient Can Go To The Location Of Their Choice, 01/14/2021 17:14:01/15/2001/14/2021 CBC w/ auto diff neut 67.2 % (44-76 ) Not Available [facility] (Centralized Electronic Ordering - All Locations) Patient Can Go To The Location Of Their Choice, 01/14/2021 17:14:01/15/2001/14/2021 CBC w/ auto diff lymph 24.0 % (15-43 ) Not Available [facility] (Centralized Electronic Ordering - All Locations) Patient Can Go To The Location Of Their Choice, 01/14/2021 17:14:27 01/15/2001/14/2021 CBC w/ auto diff monocyte 6.4 % (4.5-1 0.5) Not Available [facility] (Centralized Electronic Ordering - All Locations) Patient Can Go To The Location Of Their Choice, 01/14/2021 17:14:01/15/2001/14/2021 CBC w/ auto diff eo 1.6 % (0-6) Not Available [facility] (Centralized Electronic Ordering - All Locations) Patient Can Go To The Location Of Their Choice, 01/14/2021 17:14:27 01/15/2001/14/2021 CBC w/ auto diff baso 0.4 % (0-2) Not Available [facility] (Centralized Electronic Ordering - All Locations) Patient Can Go To The Location Of Their Choice, 01/14/2021 17:14:01/15/2001/14/2021 CBC w/ auto diff imm gran 0.4 % Not Available [facility] (Centralized Electronic Ordering - All Locations) Patient Can Go To The Location Of Their Choice, 01/14/2021 17:14:27 01/15/2001/14/2021 bun (bloo d urea nitro gen), serum or plasm a BUN 24 mg/dL (8-23) high Not Available [facility] (Centralized Electronic Ordering - All Locations) Patient Can Go To The Location Of Their Choice, 01/14/2021 18:01:16 01/15/2001/14/2021 creat inine , serum or plasm a creatinine 1.5 mg/dL (0.5-1 .0) high Not Available [facility] (Centralized Electronic Ordering - All Locations) Patient Can Go To The Location Of Their Choice, 01/14/2021 18:01:20 01/15/2001/14/2021 creat inine , serum or plasm a est GFR non 35 mL/mi n/1.7 3_M2 Creat inine based estim ated glome rular filtr ation rate (eGFR ) is calcu lated using the Chron ic Kidne y Disea se Epide miolo gy Colla borat ion (CKD- EPI). The CKD-E PI creat inine equat ion has not been valid ated in child hattie (<18 years ), pregn ant women or in some racia l or ethni c subgr oups other than Cauca sians and Afric an Ameri cans. Not Available [facility] (Centralized Electronic Ordering - All Locations) Patient Can Go To The Location Of Their Choice, 01/14/2021 18:01:20 01/15/2001/14/2021 creat inine , serum or plasm a est GFR 41 mL/mi n/1.7 3_M2 Creat inine based estim ated glome rular filtr ation rate (eGFR ) is calcu lated using the Chron ic Kidne y Disea se Epide miolo gy Colla borat ion (CKD- EPI). The CKD-E PI creat inine equat ion has not been valid ated in child hattie (<18 years ), pregn ant women or in some racia l or ethni c subgr oups other than Cauca sians and Afric an Ameri cans. Not Available [facility] (Centralized Electronic Ordering - All Locations) Patient Can Go To The Location Of Their Choice, 01/14/2021 18:01:20 01/15/2001/14/2021 elect rolyt e panel , serum sodium 142 mmol/ L (133-1 45) Not Available [facility] (Centralized Electronic Ordering - All Locations) Patient Can Go To The Location Of Their Choice, 01/14/2021 18:01:24 01/15/2001/14/2021 elect rolyt e panel , serum potassium 4.3 mmol/ L (3.6-5 .2) Not Available [facility] (Centralized Electronic Ordering - All Locations) Patient Can Go To The Location Of Their Choice, 01/14/2021 18:01:24 01/15/2001/14/2021 elect rolyt e panel , serum chloride 107 mmol/ L (98-10 7) Not Available [facility] (Centralized Electronic Ordering - All Locations) Patient Can Go To The Location Of Their Choice, 01/14/2021 18:01:24 01/15/20 21 01/14/2021 elect rolyt e panel , serum bicarbonate 24 mmol/ L (22-29 ) Not Available [facility] (Centralized Electronic Ordering - All Locations) Patient Can Go To The Location Of Their Choice, 01/14/2021 18:01:24 01/15/20 21 01/14/2021 elect rolyt e panel , serum anion gap 11 (4-17) Not Available [facility] (Centralized Electronic Ordering - All Locations) Patient Can Go To The Location Of Their Choice, 01/14/2021 18:01:24 01/15/20 21 01/14/2021 lithi um, serum lithium <0.1 mmol/ L (0.6-1 .2) low Not Available [facility] (Centralized Electronic Ordering - All Locations) Patient Can Go To The Location Of Their Choice, 01/14/2021 18:03:35 01/15/2001/14/2021 PTH (para thyro id hormo ne), intac t, serum or plasm a PTH, intact 128 pg/mL (15-65 ) high Not Available [facility] (Centralized Electronic Ordering - All Locations) Patient Can Go To The Location Of Their Choice, 01/14/2021 19:49:47 Result Notes None recorded. Medical Equipment None Reported. Allergies Allergen ID Allergen Name Allergen Category Reaction Reaction Severity Criticality Documentation Date Start Date Code Code System Note Provider Name and Address Organization Details Recorded Time 35752 Product containin g penicilli n (product) medicatio n Not available Not available Not available 12/26/2019 40663 8001 SNOMED BEBA LANG NP [address] [place], [address], [place] [facility] 0 15:36:27 34556 codeine medicatio n Not available Not available Not available 12/26/2019 2670 RxNorm BEBA LANG NP [address] [place], [address], [place] [facility] 0 15:36:35 Medications Name Sig Start Date Stop Date Status Note LastModified by Organization Details LastModified Time cetirizine 10 mg tablet TK 1 T PO QD active Not Available Not Available No t Available nifedipine ER 90 mg tablet,exte nded release active Not Available Not Available Not Available senna 8.6 mg tablet TAKE 2 TABLETS BY MOUTH EVERY NIGHT AT BEDTIME NEEDED FOR CONSTIPAT ION active Not Available Not Available No t Available clindamycin HCl 150 mg capsule 12/25 completed Not Available Not Available Not Available peg-electro lyte solution 420 gram oral solution active Not Available Not Available Not Available tramadol 50 mg tablet TAKE 1 TABLET BY MOUTH EVERY 12 HOURS NEEDED FOR PAIN active Not Available Not Available No t Available DOK 100 mg capsule TAKE 1 CAPSULE BY MOUTH TWICE DAILY NEEDED FOR CONSTIPAT ION active Not Available Not Available No t Available lithium carbonate 300 mg capsule active Not Available Not Available Not Available omeprazole 20 mg capsule,del ayed release active Not Available Not Available Not Available hydrochloro thiazide 25 mg tablet TAKE 1 TABLET BY MOUTH DAILY active Not Available Not Available No t Available alprazolam 2 mg tablet active Not Available Not Available Not Available zolpidem 10 mg tablet TAKE 1 TABLET BY MOUTH EVERY NIGHT AT BEDTIME NEEDED active Not Available Not Available No t Available lamotrigine 100 mg tablet 12/25 completed Not Available Not Available Not Available aspirin active Not Available Not Avail able Not Available ibuprofen active Not Available Not Cecilia ilable Not Available lisinopril 01/14 completed Not Available Not Available Not Available butalbital- acetaminoph en-caffeine 50 mg-300 mg-40 mg capsule active Not Available Not Available Not Available Vitals Date Recorded Oxygen saturation Oxygen saturation in Arterial blood by Pulse oximetry Body temperature Respiratory rate Heart rate Systolic And Diastolic Provider Name and Address Organization Details Last Updated DateTime 0 98 % 98 % 96.8 [degF] 18 /min 92 /min 172/106 mm[Hg] Not Available [facility] 0 15:40:33 Date Recorded Respiratory rate Heart rate Oxygen saturation Oxygen saturation in Arterial blood by Pulse oximetry Body temperature Systolic And Diastolic Provider Name and Address Organization Details Last Updated DateTime 1 20 /min 68 /min 98 % 98 % 98.4 [degF] 180/120 mm[Hg] Not Available [facility] 1 14:59:30 Social History Question Answer Notes LastModified by Organizat ion Details LastModified Time Tobacco Smoking Status Current Every Day Smoker BEBA LANG NP [address], [place], [address], [place] [facility] 12/26/2019 15:38:45 Within The Past 12 Months, Has It Happened That The Food You Bought Just Didn't Last And You Didn't Have Money To Get More. No [email or web address] Information not available 12/26/2019 Within The Past 12 Months, Have You Worried That Your Food Would Run Out Before You Got Money To Buy More. No Information not available 12/26/2019 Fall Risk: Do You Feel Unsteady When Standing Or Walking? No Information not available 12/26/2019 We Know That How And When People Interact With Friends And Family Can Be Very Different From Person To Person. How Often Do You Have The Opportunity To See Or Talk To People That You Care About And Feel Close To? (Ex: Talking To Friends On The Phone Or Visiting Friends Or Family Or Going To Bahai Or Club Meetings) Choose Not To Answer This Question [email or web address] Information not available 12/26/2019 Excessive Alcohol Or Drug Use No [email or web address] Information not available 12/26/2019 We Know From Many Of Our Patients That Covering All Of Their Costs Can Be Difficult At Times. This Can Cause Stress And Impact Health. In The Past Year, Have You Been Unable To Get Any Of The Following When It Was Really Needed? No [email or web address] Information not available 12/26/2019 What Is Your Housing Situation Today? I Have Housing [email or web address] Information not available 12/26/2019 Would You Like Help Connecting To Resources? None [email or web address] Information not available 12/26/2019 How Much Tobacco Do You Smoke? 1 PPW [email or web address] Information not available 12/26/2019 Sex: Unknown Functional Status None recorded. Mental Status None recorded. Family History Nothing Reported. Medical History Condition Response Diabetes N Coronary Artery Disease Y High Cholesterol Y Cancer N Pulmonary Embolism N Stroke N Hypertension Y Asthma N COPD N Depression Y Kidney Disease Y Gynecological HistoryNo gynecological history recorded. Obstetrics History GPAL:G 0 P 0 0 0 0 Past Encounters Encounter ID Performer Location Encounter Start Date Encounter Closed Date Diagnosis/Indication Diagnosis SNOMED-CT Code Diagnosis ICD10 Code Diagnosis Note [id number] BEBA LANG NP [facility] [address] [place] [address] 12/26/2019 15:35:17 12/26/2019 19:37:25 Edema of lower extremity 386426868 R60.0 [id number] CYNTHIA SHAFFER, [employer] SUPERVISOR [facility] [address], [place] [address] 01/14/2021 14:48:38 01/18/2021 22:32:16 Anterior epistaxis 909908491 R04.0 Hypertensive disorder 38 767577 I10 Health Concerns Section Related Observation LastModified by Organization Detai ls LastModified Time None Recorded Concern Status LastModified by Organization Details LastModified Time None Recorded Advance Directives Directive None Recorded Payers Insurance Date Sequence Insurance Name Policy Number Policy Diaz Covered Member ID Diaz Member ID Guarantor Name 01/14/2021 2 [place] [facility] Jessica Rahat [id number] Jessica Giang 12/26/2019 1 *SELF PAY* Jessica Giang [id number] Jessica Giang 01/14/2021 1 [place] [employer] [employer] Jessica Giang [id number] Jessica Giang 01/19/2021 1 [place] [facility] Jessica Giang [id number] [place] Giang Notes Date Note Type Note Provider Name and Address Organization Details Recorded Time 12/26/2019 text/html 13. This is a 64-year-old female that is [facility]. She has a medical history significant for coronary artery disease with heart attack in the past, hyperlipidemia, depression, chronic kidney disease and hypertension for which she follows with nephrology. She also had gastric banding surgery in the past. She contacted her PCP for concerns of right lower extremity swelling, her PCP office arrange for [facility] did come out and evaluate the patient. She tells me she has a family history of blood clots but has never had any blood clot herself. She does not have any known arrhythmia that predisposes her to clotting however she does actively smoke cigarettes. She tells me that she noticed swelling in her right lower extremity a few days ago. She also endorses that she has had foot surgery to this limb in the past. She initially denies high sodium diet however upon discussing her diet with her more it sounds as though she has been having increased sodium intake recently. She denies any musculoskeletal injury to her right lower extremity but also endorses that she just cannot remember. BEBA LANG, OSMANY [address], [place], [address], [place] - [facility] 12/26/2019 16:18:30 01/14/2021 text/html 65 year-old fema pamella with history of HTN, depression, who calls to the home for evaluation of nosebleeds. Pt has een having nosebleeds for the past 5 days, off and on, lasting about 10 minutes at a time.She has not had any pain, headaches. She is not on any blood thinners.She last had a nosebleed about 2 hours ago, lasting 10 minutes. She otherwise has been feeling well. She denies chest pain, shortness of breath. She denies any nausea, vomiting, diarrhea. She has had a decreased appetite which is not new to her, CYNTHIA SHAFFER, OSMANY [address], [place], [address], [place] [facility] 01/14/2021 19:53:15 OBGyn Episode No OBEpisode recorded.
== END 2025-04-03 13:50 | disposition home or self-care (01) ==
LOC: HO.HKA 13:31
PROVIDERS: PCP Nurse Practitioner Family; Visit Provider Internal Medicine Hypertension Specialist
DX: I10 Essential (primary) hypertension (principal); N18.30 Chronic kidney disease, stage 3 unspecified
CPT/HCPCS: 99214

== ENCOUNTER → 2025-04-03 13:30 | Outpatient (BNVA) | payer MEDICARE, MEDICAID, SELFPAY | PROVIDERS: PCP Nurse Practitioner Family; Visit Provider Internal Medicine Hypertension Specialist | DX: I12.9 Hypertensive chronic kidney disease with stage 1 through stage 4 chronic kidney disease, or unspecified chronic kidney disease (principal); N18.30 Chronic kidney disease, stage 3 unspecified; Z79.82 Long term (current) use of aspirin; Z79.899 Other long term (current) drug therapy | CPT/HCPCS: 99212 ==

== ENCOUNTER 2025-06-25 10:17 | Outpatient (AMB) | payer MEDICARE, MEDICAID, SELFPAY ==
--- OUTSIDE RECORDS SUMMARY | 2025-06-25 12:40 | XMS_ITS | Clinical Summary ---
Author Organization [facility] ity Address [address] [place] [address] Care Team Providers Care Forming Process Line Worker Name Role Phone Unavailable Primary Care Provider [...] 2004 Zoster Vaccines (1 of 2) 2004 Depression Screening 10/02/2024 COVID-19 Vaccine (1 - 2023-2 5 season) 2025 Influenza Vaccine (#1) 2025 RSV Immunization Adult Patie nts (1 [...]
--- OUTSIDE RECORDS SUMMARY | 2025-06-25 12:40 | XMS_ITS | Clinical Summary ---
Author Organization [facility] Address [address] [place] [address] Care Team Providers Care Community Development Worker Name Role Phone Unavailable Primary Care [...] Plan of Treatment Not on file Insurance [facility] MED[facility] [place] [id number]
== END 2025-06-25 10:24 | disposition home or self-care (01) ==
LOC: HO.HMGAL 10:17
PROVIDERS: PCP Nurse Practitioner Family; Visit Provider Registered Nurse Emergency
DX: J30.89 Other allergic rhinitis (principal)
CPT/HCPCS: 95117; 95165

== ENCOUNTER 2025-07-09 10:12 | Outpatient (AMB) | payer MEDICARE, MEDICAID, SELFPAY | END 2025-07-09 10:25 | disposition home or self-care (01) | LOC: HO.HMGAL 10:12 | PROVIDERS: PCP Nurse Practitioner Family; Visit Provider Registered Nurse Emergency | DX: J30.89 Other allergic rhinitis (principal) | CPT/HCPCS: 95117; 95165 ==

== ENCOUNTER 2025-07-16 11:56 | Outpatient (AMB) | payer MEDICARE, MEDICAID, SELFPAY ==
--- OUTSIDE RECORDS SUMMARY | 2025-07-16 15:07 | XMS_ITS | Clinical Summary ---
Author Organization [facility] ity Address [address] [place] [address] Care Team Providers Care Folder Operator Name Role Phone Unavailable Primary Care Provider [...]
--- OUTSIDE RECORDS SUMMARY | 2025-07-16 15:07 | XMS_ITS | Data Portability ---
Author Organization [place] [facility] Address [address] [place] [address] Care Team Providers Care Orthodontic Technician Assistant Name Role Phone CEDBLANCA ROSALES Primary Care Provider [phone] Assessment Encounter Date Assessment Date Assessment LastModified by Organization Details LastModified Time 12/26/2019 12/26/2019 Overview/History :This is a 64-year-old female that is new to [facility]. She has a medical history significant for coronary artery disease status post PR in the past, hyperlipidemia, hypertension, kidney disease and depression. She contacted her PCP who in turn contact [facility] for evaluation of right lower extremity swelling. [...] I have accessed patient records on the [employer] Information [employer]. This information was pertinent in my medical decision making today. [email or web address] Not available 12/26/2019 16:17:39 01/14/2021 01/14/2021 Time [...] intact as this was requested by patient's recycle driver Dr. Mensah. No active bleeding during visit [...] Go To The Location Of Their Choice, [address] 17:14:27 bun (blood urea nitrogen), serum or [...] By Organization Details Last Modified Time 12/26/2019 [id number] Patient given pe r discharge instructions, in the setting of coronavirus pandemic woman brought into home. [email or web address] Not available 12/26/2019 16:18:13 01/14/2021 [id number] [employer] came to your home to evaluate you [...] now. We liz blood to send to [facility]. We also ordered tests that your Kidney doctor wanted. - Dr Mensah will get a copy of these results. Please follow up with your PCP and make sure you check your blood pressure daily. If you experience any worsening bleeding, headache, chest pain or feeling worse, go to the emergency department,. [facility]. We cannot always find the exact [...] in your condition between 8am-10pm, please call [facility] at [phone] to help navigate your care. Not available [...] Name and Address Organization Details Recorded Time 46386 Product containin g penicilli n (product) medicatio n Not available Not available Not available 12/26/2019 07887 8001 SNOMED BEBA LANG NP [address] [facility] [place], [id number], [place] [facility] 0 15:36:27 58844 codeine medicatio n Not available Not available Not available 12/26/2019 2670 RxNorm BEBA LANG NP [address] [facility] [place], [id number], [place] [facility] [...] /min 92 /min 172/106 mm[Hg] Not Available [facility] 0 15:40:33 Date Recorded Respiratory rate Heart rate Oxygen saturation Oxygen saturation in Arterial blood by Pulse oximetry Body temperature Systolic And Diastolic Provider Name and Address Organization Details Last Updated DateTime 1 20 /min 68 /min 98 % 98 % 98.4 [degF] 180/120 mm[Hg] Not Available [facility] 1 14:59:30 Social History Question Answer Notes LastModified by Organizat ion Details LastModified Time Tobacco Smoking Status Current Every Day Smoker BEBA LANG NP [address], [place], [address], [place] [facility] 12/26/2019 15:38:45 Within The Past 12 Months, Has It Happened That The Food You Bought Just Didn't Last And You Didn't Have Money To Get More. No [email or web address] Information not available 12/26/2019 Within The Past 12 Months, Have You Worried That Your Food Would Run Out Before You Got Money To Buy More. No [email or web address] Information not available 12/26/2019 Fall Risk: Do [...] Visiting Friends Or Family Or Going To Yazdanism Or Club Meetings) Choose Not To Answer This Question [email or web address] Information not available 12/26/2019 Excessive Alcohol Or Drug Use No [email or web address] Information not available 12/26/2019 We Know From Many Of Our Patients That Covering All Of Their Costs Can Be Difficult At Times. This Can Cause Stress And Impact Health. In The Past Year, Have You Been Unable To Get Any Of The Following When It Was Really Needed? No [email or web address] Information not available 12/26/2019 What Is Your Housing Situation Today? I Have Housing [email or web address] Information not available 12/26/2019 Would You Like Help Connecting To Resources? None [email or web address] Information not available 12/26/2019 How Much Tobacco Do You Smoke? 1 PPW [email or web address] Information not available 12/26/2019 Sex: Unknown Functional Status None recorded. Mental Status None recorded. Family History Nothing Reported. Medical History Condition Response Diabetes N Coronary Artery Disease Y Cancer N Stroke N COPD N Depression Y Asthma N High Cholesterol Y Pulmonary Embolism N Hypertension Y Kidney Disease Y Gynecological HistoryNo gynecological history recorded. Obstetrics History GPAL:G 0 P 0 0 0 0 Past Encounters Encounter ID Performer Location Encounter Start Date Encounter Closed Date Diagnosis/Indication Diagnosis SNOMED-CT Code Diagnosis ICD10 Code Diagnosis IMO Codes Diagnosis Note [id number] BEBA LANG, DEPLOYMENT MANAGER [facility] [address] [place] [id number] 12/26/2019 15:35:17 12/26/2019 19:37:25 Edema of lower extremity 978344099 R60.0 [id number] CYNTHIA SHAFFER, DEPLOYMENT MANAGER [facility] - [place] [address] [place] [id number] 01/14/2021 14:48:38 01/18/2021 22:32:16 Anterior epistaxis 347474975 R04.0 Hypertensive disorder 38 904818 I10 Health Concerns Section Related Observation LastModified by Organization Detai ls LastModified Time None Recorded Concern Status LastModified by Organization Details LastModified Time None Recorded Advance Directives Directive None Recorded Payers Insurance Date Sequence Insurance Name Policy Number Policy Diaz Covered Member ID Diaz Member ID Guarantor Name 01/14/2021 2 [place] [facility] Jessica Giang [id number] Jessica Giang 12/26/2019 1 *SELF PAY* Jessica Giang [id number] Jessica Giang 01/14/2021 1 [place] [employer] Jessica Giang [id number] Jessica Giang 01/19/2021 1 [place] [employer] Jessica Giang [id number] [place] Giang Notes Date Note Type Note Provider Name and Address Organization Details Recorded Time 12/26/2019 text/html General HPI Temp late - DHReported by Patient 13. This is a 64-year-old female that [facility]. She has a medical history significant for coronary artery disease with heart attack in the past, hyperlipidemia, depression, chronic kidney disease and hypertension for which she follows with nephrology. She also had gastric banding surgery in the past. She contacted her PCP for concerns of right lower extremity swelling, her PCP office arrange for [facility] did come out and evaluate the patient. [...] remember. BEBA LANG, OSMANY [address], [place], [address], [place] [facility] 12/26/2019 16:18:30 01/14/2021 text/html 65 year-old female with history of HTN, depression, who calls [...] her, CYNTHIA SHAFFER, OSMANY [address], [place], [address], [place] [facility] 01/14/2021 19:53:15 OBGyn Episode No OBEpisode recorded.
== END 2025-07-16 11:56 | disposition home or self-care (01) ==
LOC: HO.HMGAL 11:56
PROVIDERS: PCP Nurse Practitioner Family; Visit Provider Registered Nurse Emergency
DX: J30.89 Other allergic rhinitis (principal)
CPT/HCPCS: 95117; 95165

== ENCOUNTER 2025-07-23 10:05 | Outpatient (AMB) | payer MEDICARE, MEDICAID, SELFPAY ==
--- OUTSIDE RECORDS SUMMARY | 2025-07-23 12:15 | XMS_ITS | Clinical Summary ---
Author Organization [facility] ity Address [address] [place] [address] Care Team Providers Care Photo Manager Name Role Phone Unavailable Primary Care Provider [...]
== END 2025-07-23 10:06 | disposition home or self-care (01) ==
LOC: HO.HMGAL 10:05
PROVIDERS: PCP Nurse Practitioner Family; Visit Provider Registered Nurse Emergency
DX: J30.89 Other allergic rhinitis (principal)
CPT/HCPCS: 95117; 95165

== ENCOUNTER 2025-08-06 09:59 | Outpatient (AMB) | payer MEDICARE, MEDICAID, SELFPAY ==
--- OUTSIDE RECORDS SUMMARY | 2025-08-06 11:29 | XMS_ITS | Clinical Summary ---
Author Organization [facility] ity Address [address] [place] [address] Care Team Providers Care Computer System Specialist Name Role Phone Unavailable Primary Care Provider [...]
--- OUTSIDE RECORDS SUMMARY | 2025-08-06 11:29 | XMS_ITS | Data Portability ---
Author Organization [place] [facility] Address [address] [place] [address] Care Team Providers Care Medicare Specialist Name Role Phone CEDBLANCA ROSALES Primary Care Provider [phone] Assessment Encounter Date Assessment Date Assessment LastModified by Organization Details LastModified Time 12/26/2019 12/26/2019 Overview/History :This is a 64-year-old female that is new to [facility]. She has a medical history significant for coronary artery disease status post DC in the past, hyperlipidemia, hypertension, kidney disease and depression. She contacted her PCP who in turn contact [facility] for evaluation of right lower extremity swelling. [...] I have accessed patient records on the [facility] Information Exchange. This information was pertinent in my medical decision making today. [email or web address] Not available 12/26/2019 16:17:39 01/14/2021 01/14/2021 Time [...] intact as this was requested by patient's head sugar reprocess operator Dr. Mensah. No active bleeding during [...] Go To The Location Of Their Choice, [address] 17:14:27 bun (blood urea nitrogen), serum or [...] By Organization Details Last Modified Time 12/26/2019 [id number] Patient given pe r discharge instructions, in the setting of coronavirus pandemic woman brought into home. [email or web address] Not available 12/26/2019 16:18:13 01/14/2021 [id number] [employer] came to your home to evaluate you [...] now. We liz blood to send to [facility]. We also ordered tests that your Kidney doctor wanted. - Dr Mensah will get a copy of these results. Please follow up with your PCP and make sure you check your blood pressure daily. If you experience any worsening bleeding, headache, chest pain or feeling worse, go to the emergency department,. Thank you [facility] your visit with [facility] today. We cannot always find the exact [...] in your condition between 8am-10pm, please call [facility] at [phone] to help navigate your care. Not available [...] Name and Address Organization Details Recorded Time 59231 Product containin g penicilli n (product) medicatio n Not available Not available Not available 12/26/2019 68677 8001 SNOMED BEBA LANG NP [address] [place], [address], [place] [facility] 0 15:36:27 91312 codeine medicatio n Not available Not available Not available 12/26/2019 2670 RxNorm BEBA LANG NP [address] [place], [address], [place] [facility] [...] /min 92 /min 172/106 mm[Hg] Not Available [facility] 0 15:40:33 Date Recorded Respiratory rate Heart rate Oxygen saturation Oxygen saturation in Arterial blood by Pulse oximetry Body temperature Systolic And Diastolic Provider Name and Address Organization Details Last Updated DateTime 1 20 /min 68 /min 98 % 98 % 98.4 [degF] 180/120 mm[Hg] Not Available [facility] 1 14:59:30 Social History Question Answer Notes LastModified by Organizat ion Details LastModified Time Tobacco Smoking Status Current Every Day Smoker BEBA LANG NP [address], [place], [address], [place] [facility] 12/26/2019 15:38:45 Within The Past 12 Months, Has It Happened That The Food You Bought Just Didn't Last And You Didn't Have Money To Get More. No [email or web address] Information not available 12/26/2019 Within The Past 12 Months, Have You Worried That Your Food Would Run Out Before You Got Money To Buy More. No [email or web address] Information not available 12/26/2019 Fall Risk: Do You Feel Unsteady When Standing Or Walking? No [email or web address] Information not available 12/26/2019 We Know That How And When People Interact With Friends And Family Can Be Very Different From Person To Person. How Often Do You Have The Opportunity To See Or Talk To People That You Care About And Feel Close To? (Ex: Talking To Friends On The Phone Or Visiting Friends Or Family Or Going To Sabianist Or Club Meetings) Choose Not To Answer This Question [email or web address] Information not available 12/26/2019 Excessive Alcohol Or Drug Use No [email or web address] Information not available 12/26/2019 We Know From Many Of Our Patients That Covering All Of Their Costs Can Be Difficult At Times. This Can Cause Stress And Impact Health. In The Past Year, Have You Been Unable To Get Any Of The Following When It Was Really Needed? No [email or web address] Information not available 12/26/2019 What Is Your Housing Situation Today? I Have Housing [email or web address] Information not available 12/26/2019 Would You Like Help Connecting To Resources? None [email or web address] Information not available 12/26/2019 How Much Tobacco Do You Smoke? 1 PPW [email or web address] Information not available 12/26/2019 Sex: Unknown Functional Status None recorded. Mental Status None recorded. Family History Nothing Reported. Medical History Condition Response Diabetes N Coronary Artery Disease Y High Cholesterol Y Pulmonary Embolism N Cancer N Hypertension Y Stroke N Asthma N COPD N Depression Y Kidney Disease Y Gynecological HistoryNo gynecological history recorded. Obstetrics History GPAL:G 0 P 0 0 0 0 Past Encounters Encounter ID Performer Location Encounter Start Date Encounter Closed Date Diagnosis/Indication Diagnosis SNOMED-CT Code Diagnosis ICD10 Code Diagnosis IMO Codes Diagnosis Note [id number] BEBA LANG, AIRCRAFT MACHINIST [facility] [address] [place] [id number] 12/26/2019 15:35:17 12/26/2019 19:37:25 Edema of lower extremity 877624246 R60.0 [id number] CYNTHIA SHAFFER, AIRCRAFT MACHINIST [facility] [address] [place] [id number] 01/14/2021 14:48:38 01/18/2021 22:32:16 Anterior epistaxis 652358906 R04.0 Hypertensive disorder 38 874393 I10 Health Concerns Section Related Observation LastModified by Organization Detai ls LastModified Time None Recorded Concern Status LastModified by Organization Details LastModified Time None Recorded Advance Directives Directive None Recorded Payers Insurance Date Sequence Insurance Name Policy Number Policy Diaz Covered Member ID Diaz Member ID Guarantor Name 01/14/2021 2 [place] [facility] Jessica Giang [id number] Jessica Giang 12/26/2019 1 *SELF PAY* Jessica Giang [id number] Jessica Giang 01/14/2021 1 [place] [employer] Jessica Giang [id number] Jessica Giang 01/19/2021 1 [place] [employer] Jessica Giang [id number] Jessicadale Giang Notes Date Note Type Note Provider Name and Address Organization Details Recorded Time 12/26/2019 text/html General HPI Temp late - DHReported by Patient 13. This is a 64-year-old female that is new to [facility]. She has a medical history significant for coronary artery disease with heart attack in the past, hyperlipidemia, depression, chronic kidney disease and hypertension for which she follows with nephrology. She also had gastric banding surgery in the past. She contacted her PCP for concerns of right lower extremity swelling, her PCP office arrange for [facility] did come out and evaluate the patient. [...] remember. BEBA LANG, OSMANY [address], [place], [address], [place] [facility] 12/26/2019 16:18:30 01/14/2021 text/html [...] her, CYNTHIA SHAFFER, OSMANY [address], [place], [address], [place] [facility] 01/14/2021 19:53:15 OBGyn Episode No OBEpisode recorded.
== END 2025-08-06 10:00 | disposition home or self-care (01) ==
LOC: HO.HMGAL 09:59
PROVIDERS: PCP Nurse Practitioner Family; Visit Provider Registered Nurse Emergency
DX: J30.89 Other allergic rhinitis (principal)
CPT/HCPCS: 95117; 95165

== ENCOUNTER 2025-08-07 13:46 | Outpatient (AMB) | payer MEDICARE, MEDICAID, SELFPAY ==
[2025-08-07 13:49] VITALS: BP 184/104; BMI 22.9
--- NOTE | 2025-08-07 13:49 | HO.NEPHOV ---
Vital Signs 08/07/25 13:49 08/07/25 14:00 Height 5 ft 9 in Weight 155 lb BMI 22.9 BP 184/104 H 150/90 H Blood Pressure Location Rt brachial Rt brachial Position Sitting Sitting Intake Visit Reasons: 4mon follow-up w/labs conf Amusement Or Recreation Card Checker Required: No Accompanied by: Self / Same As Patient Allergies codeine Allergy (Unknown, Verified 08/07/25 13:53) Unknown Penicillins Allergy (Unknown, Verified 08/07/25 13:53) Unknown Medication List - Last Reconciled 08/07/25 by Wero Mensah MD albuterol sulfate 90 mcg/actuation inhalation PRN alprazolam mg PO TID PRN aspirin 81 mg PO DAILY atorvastatin 40 mg PO DAILY esomeprazole magnesium 20 mg PO QAM hydrochlorothiazide 25 mg PO DAILY losartan 50 mg PO BID omeprazole 20 mg PO BID PRN tramadol 50 mg PO BID PRN umeclidinium 62.5 mcg/actuation (Incruse Ellipta) 1 inh inhalation DAILY PRN umeclidinium-vilanterol 62.5-25 mcg/actuation (Anoro Ellipta) 1 ea inhalation DAILY HPI Comments Details: Jessica is a middle-aged woman with a history of bipolar disorder and she has been on lithium for a long time. She has chronic kidney disease and he is here for regular follow-up. She is history of COPD and she continues to smoke. History of cocaine use in the past. Next day of longstanding hypertension obesity. She comes to follow up after year. Blood pressure has been elevated at pulmonary rehab. Systolic blood pressure has been more than 200 mm Hg. She is not sure what medication she is on. 12/03/2024. Jessica underwent 24 hour ambulatory blood pressure monitoring. She brought in all her medications. She is on losartan 50 mg q.d.. She takes hydrochlorothiazide. Dosage unknown. She is not on any other antihypertensive medication. 12/17/24 Overall doing well 04/03/25 The patient is a 70-year-old female presenting with hypertension and chronic kidney disease. Her hypertension is well-controlled with hydrochlorothiazide and losartan, maintaining a blood pressure of 122/88 mmHg. Chronic kidney disease has improved, with current kidney function at 36%, and she has discontinued lithium to prevent further renal impairment. 08/07/25 The patient is a 70-year-old female presenting with management of hypertension and kidney function. The patient reports her blood pressure has not been well-controlled recently, attributing this to stress following her 's passing due to lung cancer. She is currently taking losartan, hydrochlorothiazide, and a statin for her hypertension and cholesterol management. Despite medication adherence, her blood pressure readings fluctuate, with some days being normal and others elevated. The patient has been experiencing headaches intermittently for about a week, for which she has taken tramadol. She has a personal injury legal assistant but does not have a nurse visiting her home. The patient is scheduled for surgery to remove a slipped lap band, which has been causing issues. She has undergone extensive blood work in preparation for this procedure. The patient's kidney function has improved from 36% to 45%, which she attributes to dietary changes, including avoiding preservatives and red meat, and consuming more vegetables. She maintains a healthy lifestyle by walking regularly and attending the gym. She has also reduced her smoking habit to two cigarettes a day on weekends. [facility] Surgical History H/O laminectomy (~04/2023) Social History Patient Tobacco Use Status: Current someday Tobacco user Tobacco use type: Cigarette Physical Exam Vital Signs: Last Vital Signs BP 150/90 H 08/07/25 14:00 BMI result Body Mass Index 22.9 Const General: comfortable Nutritional Appearance: well nourished Orientation/consciousness: patient oriented x3 HEENT Head: No normal to inspection Mouth: moist mucous membranes Neck Neck: Yes supple and Yes no JVD Resp Auscultation: clear to auscultation bilaterally and no rales Cardio Jugular venous distension: no JVD Palpation: no palpable S3 and no palpable S4 Heart sounds: no rubs GI Palpation (GI): Soft to palpation and nontender Percussion: No Fluid wave present General: Yes no CVA tenderness Back/Spine/Pelvis Back: no CVA tenderness Skin General skin exam: no rashes or lesions noted Neuro General: patient oriented x3 Extrem General: Yes no pedal edema and No clubbing Results Reviewed Nephrology Results: Hgb, (12.0-16.0) 14.3 g/dl 12/02/24 WBC, (4.8-10.8) 3.9 X10*3/uL L 12/02/24 Plt Count, (160-400) 200 X10*3/uL 12/02/24 Sodium, (135-145) 139 mmol/L 12/02/24 Potassium, (3.3-5.1) 3.8 mmol/L 12/02/24 Chloride, (96-108) 106 mmol/L 12/02/24 Carbon Dioxide, (22-29) 23 mmol/L 12/02/24 BUN, (9-16) 16 mg/dL 12/02/24 Creatinine, (0.5-1.4) 1.31 mg/dL 12/02/24 Calcium, (8.4-10.2) 9.3 mg/dL 12/02/24 Assessment & Plan Assessment & Plan (1) HTN (hypertension): Code(s): I10 - Essential (primary) hypertension Category: Medical Plan: Blood pressure is better controlled.l Initial BP was e;evated and repeat was lower Home BP seem sacceptable Based on 24 hour ABP M I will continue losartan to 50 mg b.i.d.. Keep on hydrochlorothiazide 25 mg daily. 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 Keep intake more than output. She is currently off lithium. -renal function stable we will continue to monitor closely. Orders: Orders Basic Metabolic Panel 3 Months N18.30 - Chronic kidney disease, stage 3 unspecified Coding Level of Care Code Est Pt Level 4 (29753) Diagnoses HTN (hypertension) I10 CKD (chronic kidney disease) stage 3, GFR 30-59 ml/min N18.30
[2025-08-07 14:00] VITALS: BP 150/90
--- OUTSIDE RECORDS SUMMARY | 2025-08-07 16:45 | XMS_ITS | Clinical Summary ---
Author Organization [facility] ity Address [address] [place] [address] Care Team Providers Care Dean For Student Affairs Name Role Phone Unavailable Primary Care Provider [...]
--- OUTSIDE RECORDS SUMMARY | 2025-08-07 16:45 | XMS_ITS | Encounter Summary ---
Author Organization [facility], Address [address] [place] [address] Phone Care Team Providers Care City Library Director Name Role Phone Natividad Gomez PIG CASTING MACHINE OPERATOR Primary Care Provider [phone] Encounter Details Date Type Department Care Team (Late st Contact Info) Description 10/03/2024 Documentation Only [facility], [address] [place] [address] Dominga Torres [place] [address] [place] [id number] Social History Tobacco Use Types Packs/Day Years [...] as of this encounter Plan of Treatment Not on file documented as of this encounter Visit Diagnoses Not on filedocumented in this encounter Care Teams City Library Director Relationship Specialty Start Date End Date Natividad Gomez NP [address] [place] [address] PCP - General Nurse Practitioner 12/22/21 documented as of this encounter
--- OUTSIDE RECORDS SUMMARY | 2025-08-07 16:45 | XMS_ITS | Clinical Summary ---
Author Organization [facility] Address [address] [place] [address] Care Team Providers Care Accredited Pharmacy Technician Name Role Phone Unavailable Primary Care [...] Plan of Treatment Not on file [facility] [place] [id number]
--- OUTSIDE RECORDS SUMMARY | 2025-08-07 16:45 | XMS_ITS | Clinical Summary ---
Author Organization [facility], Address [address] [place] [address] [place] [address] Phone Care Team Providers Care Roofing Layer Name Role Phone Jason, Natividad OSMANY Primary Care Provider [phone] Allergies Active Allergy Reactions Criticality Noted Date [...] 12/22/2021 Migraine 12/22/2021 Sleep apnea 12/22/2021 Tubular adenomatous polyp of colon 12/22/2021 On lithium 05/26/2021 Chronic [...] - PCV) 05/30/2003 05/30/2002 Influenza Vaccine (#1) 2025 0, 09/30/2019, 06/18/2013, Additional history exists Pneumococcal Vaccine: Peds (0 to 5 Years) and At-Risk Patients (6 to 49 Years) Discontinued 05/30/2002 Hepatitis B Vaccine Aged Out No longe r eligible based on patient's age to complete this topic Insurance Medicare Medicaid [place] Medicare Medicaid [place] Medicaid [place] Medicare Care Teams Roofing Layer Relationship Specialty Start Date End Date Natividad Gomez [facility] [place] [address] PCP - General Nurse Practitioner 12/22/21
--- OUTSIDE RECORDS SUMMARY | 2025-08-07 16:46 | XMS_ITS | Encounter Summary ---
Author Organization [facility], Address [address] [place] [address] Phone Care Team Providers Care Senior Energy Trader Name Role Phone Natividad Gomez HOUSEHOLD COOK Primary Care Provider [phone] Encounter Details Date Type Department Care Team (Late st Contact Info) Description 10/04/2024 Documentation Only [facility], [address] [place] [address] Dominga Torres [place] [address] [place] [phone] Social History Tobacco Use Types Packs/Day Years [...] on filedocumented in this encounter Care Teams Senior Energy Trader Relationship Specialty Start Date End Date Natividad Gomez NP [address] [place] [address] PCP - General Nurse Practitioner 12/22/21 documented as of this encounter
== END 2025-08-07 14:06 | disposition home or self-care (01) ==
LOC: HO.HKA 13:47
PROVIDERS: PCP Nurse Practitioner Family; Visit Provider Internal Medicine Hypertension Specialist
DX: I10 Essential (primary) hypertension (principal); N18.30 Chronic kidney disease, stage 3 unspecified
CPT/HCPCS: 99214

== ENCOUNTER → 2025-08-07 13:46 | Outpatient (BNVA) | payer MEDICARE, MEDICAID, SELFPAY | PROVIDERS: PCP Nurse Practitioner Family; Visit Provider Internal Medicine Hypertension Specialist | DX: I12.9 Hypertensive chronic kidney disease with stage 1 through stage 4 chronic kidney disease, or unspecified chronic kidney disease (principal); N18.30 Chronic kidney disease, stage 3 unspecified; Z72.0 Tobacco use; Z79.82 Long term (current) use of aspirin | CPT/HCPCS: 99212 ==

== ENCOUNTER 2025-08-13 10:16 | Outpatient (AMB) | payer MEDICARE, MEDICAID, SELFPAY ==
--- OUTSIDE RECORDS SUMMARY | 2025-08-13 12:06 | XMS_ITS | Clinical Summary ---
Author Organization [facility], Address [address] [place] [address] [place] [address] Phone Care Team Providers Care Director Pediatric Name Role Phone Jason, Natividad OSMANY Primary Care Provider [phone] Allergies Active Allergy Reactions Criticality Noted Date [...] topic Insurance Medicare Medicaid [place] Medicare Medicaid [place] Medicaid [place] Medicare Care Teams Director Pediatric Relationship Specialty Start Date End Date Natividad Gomez [place] [address] PCP - General Nurse Practitioner 12/22/21
--- OUTSIDE RECORDS SUMMARY | 2025-08-13 12:06 | XMS_ITS | Clinical Summary ---
Author Organization [facility] ity Address [address] [place] [address] Care Team Providers Care Marketing Development Specialist Name Role Phone Unavailable Primary Care [...] Depression Screening 10/02/2024 COVID-19 Vaccine (1 - 2024-2 6 season) 2025 Influenza Vaccine (#1) 2025 RSV [...]
--- OUTSIDE RECORDS SUMMARY | 2025-08-13 12:06 | XMS_ITS | Encounter Summary ---
Author Organization [facility], Address [address] [place] [address] Phone Care Team Providers Care Yacht Master Name Role Phone Natividad Gomez CABINET FINISHER Primary Care Provider [phone] Encounter Details Date Type Department Care Team (Late st Contact Info) Description 10/03/2024 Documentation Only [facility], [address] [place] [address] Dominga Torres [place] [address] [place] [phone] Social History Tobacco Use Types Packs/Day Years [...] on filedocumented in this encounter Care Teams Yacht Master Relationship Specialty Start Date End Date Natividad Gomez NP [address] [place] [address] PCP - General Nurse Practitioner 12/22/21 documented as of this encounter
--- OUTSIDE RECORDS SUMMARY | 2025-08-13 12:06 | XMS_ITS | Encounter Summary ---
Author Organization [facility], Address [address] [place] [address] Phone Care Team Providers Care Concrete Mixing Plant Laborer Name Role Phone Natividad Gomez METER SETTER Primary Care Provider [phone] Encounter Details Date Type Department Care Team (Late st Contact Info) Description 10/04/2024 Documentation Only [facility], [address] [place] [address] Dominga Torres [place] [address] [place] [phone] Social History Tobacco Use Types Packs/Day Years [...] on filedocumented in this encounter Care Teams Concrete Mixing Plant Laborer Relationship Specialty Start Date End Date Natividad Gomez NP [address] [place] [address] PCP - General Nurse Practitioner 12/22/21 documented as of this encounter
--- OUTSIDE RECORDS SUMMARY | 2025-08-13 12:06 | XMS_ITS | Clinical Summary ---
Author Organization [facility] Address [address] [place] [address] Care Team Providers Care Field Supervisor Seed Production Name Role Phone Unavailable Primary Care Provider [...] Plan of Treatment Not on file [facility] [place] [id number]
== END 2025-08-13 10:16 | disposition home or self-care (01) ==
LOC: HO.HMGAL 10:16
PROVIDERS: PCP Nurse Practitioner Family; Visit Provider Registered Nurse Emergency
DX: J30.89 Other allergic rhinitis (principal)
CPT/HCPCS: 95117; 95165

== ENCOUNTER 2025-08-20 11:01 | Outpatient (AMB) | payer MEDICARE, MEDICAID, SELFPAY ==
--- OUTSIDE RECORDS SUMMARY | 2025-08-20 21:44 | XMS_ITS | Encounter Summary ---
Author Organization [facility], Address [address] [place] [address] Phone Care Team Providers Care Shaving Machine Operator Name Role Phone Natividad Gomez POWER TRANSMISSION ENGINEER Primary Care Provider Encounter Details Date Type Department Care Team (Late st Contact Info) Description 10/03/2024 Documentation Only [facility], [address] [place] [address] Dominga Torres [place] [address] [place] [address] Social History Tobacco Use Types Packs/Day Years [...] on filedocumented in this encounter Care Teams Shaving Machine Operator Relationship Specialty Start Date End Date Natividad Gomez NP [address] [place] [address] PCP - General Nurse Practitioner 12/22/21 documented as of this encounter
--- OUTSIDE RECORDS SUMMARY | 2025-08-20 21:44 | XMS_ITS | Clinical Summary ---
Author Organization [facility], Address [address] [place] [address] [place] [address] Phone Care Team Providers Care Beamer Hand Name Role Phone Jason, Natividad OSMANY Primary Care Provider [phone] Allergies Active Allergy Reactions Criticality Noted Date [...] topic Insurance Medicare Medicaid [place] Medicare Medicaid [place] Medicaid [place] Medicare Care Teams Beamer Hand Relationship Specialty Start Date End Date Natividad Gomez [facility] [place] [address] PCP - General Nurse Practitioner 12/22/21
--- OUTSIDE RECORDS SUMMARY | 2025-08-20 21:44 | XMS_ITS | Encounter Summary ---
Author Organization [facility], Address [address] [place] [address] Phone Care Team Providers Care Chief Supply Chain Officer Name Role Phone Natividad Gomez PLANNING FEEDER Primary Care Provider [phone] Encounter Details Date Type Department Care Team (Late st Contact Info) Description 10/04/2024 Documentation Only [facility], [address] [place] [address] Dominga Torres [place] [address] [place] [phone] Social History Tobacco Use Types Packs/Day Years [...] on filedocumented in this encounter Care Teams Chief Supply Chain Officer Relationship Specialty Start Date End Date Natividad Gomez NP [address] [place] [address] PCP - General Nurse Practitioner 12/22/21 documented as of this encounter
--- OUTSIDE RECORDS SUMMARY | 2025-08-20 21:44 | XMS_ITS | Data Portability ---
Author Organization [place] [facility] Address [address] [place] [address] Care Team Providers Care Athletic Director Name Role Phone CEDBLANCA ROSALES Primary Care Provider [phone] Assessment Encounter Date Assessment Date Assessment LastModified by Organization Details LastModified Time 12/26/2019 12/26/2019 Overview/History :This is a 64-year-old female that is new to [facility]. She has a medical history significant for coronary artery disease status post NC in the past, hyperlipidemia, hypertension, kidney disease and depression. She contacted her PCP who in turn contact [facility] for evaluation of right lower extremity [...] I have accessed patient records on the [employer]. This information was pertinent in my medical decision making today. [email or web address] Not available 12/26/2019 16:17:39 01/14/2021 01/14/2021 Time [...] intact as this was requested by patient's clinical psychologist Dr. Mensah. No active bleeding during visit [...] Go To The Location Of Their Choice, [address] 17:14:27 bun (blood urea nitrogen), serum or [...] By Organization Details Last Modified Time 12/26/2019 [id number] Patient given pe r discharge instructions, in the setting of coronavirus pandemic woman brought into home. [email or web address] Not available 12/26/2019 16:18:13 01/14/2021 [id number] [facility] came to your home to evaluate you [...] now. We liz blood to send to [facility]. We also ordered tests that your Kidney doctor wanted. - Dr Mensah will get a copy of these results. Please follow up with your PCP and make sure you check your blood pressure daily. If you experience any worsening bleeding, headache, chest pain or feeling worse, go to the emergency department,. [facility]. We cannot always find [...] in your condition between 8am-10pm, please call [facility] at [phone] to help navigate your care. Not available [...] Name and Address Organization Details Recorded Time 16266 Product containin g penicilli n (product) medicatio n Not available Not available Not available 12/26/2019 95385 8001 SNOMED BEBA LANG NP [address] [facility] [place], [address], [place] [facility] 0 15:36:27 50337 codeine medicatio n Not available Not available Not available 12/26/2019 2670 RxNorm BEBA LANG NP [address] [facility] [place], [address], [place] [facility] [...] /min 92 /min 172/106 mm[Hg] Not Available [facility] 0 15:40:33 Date Recorded Respiratory rate Heart rate Oxygen saturation Oxygen saturation in Arterial blood by Pulse oximetry Body temperature Systolic And Diastolic Provider Name and Address Organization Details Last Updated DateTime 1 20 /min 68 /min 98 % 98 % 98.4 [degF] 180/120 mm[Hg] Not Available [facility] 1 14:59:30 Social History Question Answer Notes LastModified by Organizat ion Details LastModified Time Tobacco Smoking Status Current Every Day Smoker BEBA LANG NP [address], [place], [address], [place] [facility] 12/26/2019 15:38:45 Within The Past 12 Months, Has It Happened That The Food You Bought Just Didn't Last And You Didn't Have Money To Get More. No [email or web address] Information not available 12/26/2019 Within The Past 12 Months, Have You Worried That Your Food Would Run Out Before You Got Money To Buy More. No [email or web address] Information not available 12/26/2019 Fall Risk: Do You Feel Unsteady When Standing Or Walking? No [email or web address] Information not available 12/26/2019 We Know That How And When People Interact With Friends And Family Can Be Very Different From Person To Person. How Often Do You Have The Opportunity To See Or Talk To People That You Care About And Feel Close To? (Ex: Talking To Friends On The Phone Or Visiting Friends Or Family Or Going To Zoroastrianism Or Club Meetings) Choose Not To Answer This Question Information not available 12/26/2019 Excessive Alcohol Or Drug Use No [email or web address] Information not available 12/26/2019 We Know From Many Of Our Patients That Covering All Of Their Costs Can Be Difficult At Times. This Can Cause Stress And Impact Health. In The Past Year, Have You Been Unable To Get Any Of The Following When It Was Really Needed? No [email or web address] Information not available 12/26/2019 What Is Your Housing Situation Today? I Have Housing [email or web address] Information not available 12/26/2019 Would You Like Help Connecting To Resources? None Information not available 12/26/2019 How Much Tobacco Do You Smoke? 1 PPW [email or web address] Information not available 12/26/2019 Sex: Unknown Functional Status None recorded. Mental Status None recorded. Family History Nothing Reported. Medical History Condition Response Coronary Artery Disease Y COPD N Depression Y Diabetes N Cancer N Stroke N Asthma N High Cholesterol Y Pulmonary Embolism N Hypertension Y Kidney Disease Y Gynecological HistoryNo gynecological history recorded. Obstetrics History GPAL:G 0 P 0 0 0 0 Past Encounters Encounter ID Performer Location Encounter Start Date Encounter Closed Date Diagnosis/Indication Diagnosis SNOMED-CT Code Diagnosis ICD10 Code Diagnosis IMO Codes Diagnosis Note [id number] BEBA LANG, [facility] [address] [place] [address] 12/26/2019 15:35:17 12/26/2019 19:37:25 Edema of lower extremity 149252133 R60.0 [id number] CYNTHIA SHAFFER, [facility] [address] [place] [address] 01/14/2021 14:48:38 01/18/2021 22:32:16 Anterior epistaxis 986412371 R04.0 Hypertensive disorder 38 711574 I10 Health Concerns Section Related Observation LastModified by Organization Detai ls LastModified Time None Recorded Concern Status LastModified by Organization Details LastModified Time None Recorded Advance Directives Directive None Recorded Payers Insurance Date Sequence Insurance Name Policy Number Policy Diaz Covered Member ID Diaz Member ID Guarantor Name 01/14/2021 2 [place] [facility] Jessica Giang [id number] Jessica Giang 12/26/2019 1 *SELF PAY* Jessica Giang [id number] Jessica Giang 01/14/2021 1 [place] [employer] Jessica Giang [id number] Jessica Giang 01/19/2021 1 [place] [employer] Jessica Giang [id number] [place] Giang Notes Date Note Type Note Provider Name and Address Organization Details Recorded Time 12/26/2019 text/html General HPI Temp late - DHReported by Patient 13. This is a 64-year-old female that is new to [facility]. She has a medical history significant for coronary artery disease with heart attack in the past, hyperlipidemia, depression, chronic kidney disease and hypertension for which she follows with nephrology. She also had gastric banding surgery in the past. She contacted her PCP for concerns of right lower extremity swelling, her PCP office arrange for [facility] did come out and evaluate the [...] remember. BEBA LANG, OSMANY [address], [place], [address], [place] [facility] 12/26/2019 16:18:30 01/14/2021 text/html [...] her, CYNTHIA SHAFFER, OSMANY [address], [place], [address], [place] [facility] 01/14/2021 19:53:15 OBGyn Episode No OBEpisode recorded.
--- OUTSIDE RECORDS SUMMARY | 2025-08-20 21:44 | XMS_ITS | Clinical Summary ---
Author Organization [facility] ity Address [address] [place] [address] Care Team Providers Care Hand Cloth Cutter Name Role Phone Unavailable Primary Care Provider [...]
== END 2025-08-20 11:01 | disposition home or self-care (01) ==
LOC: HO.HMGAL 11:01
PROVIDERS: PCP Nurse Practitioner Family; Visit Provider Registered Nurse Emergency
DX: J30.89 Other allergic rhinitis (principal)
CPT/HCPCS: 95117; 95165

== ENCOUNTER 2025-08-27 10:06 | Outpatient (AMB) | payer MEDICARE, MEDICAID, SELFPAY ==
--- OUTSIDE RECORDS SUMMARY | 2025-08-27 11:48 | XMS_ITS | Encounter Summary ---
Author Organization [facility], Address [address] [place] [address] Phone Care Team Providers Care Warehouse Engineer Name Role Phone Natividad Gomez EXTRUSION PRESS OPERATOR Primary Care Provider [phone] Encounter Details Date Type Department Care Team (Late st Contact Info) Description 10/03/2024 Documentation Only [facility], [address] [place] [address] Dominga Torres [place] [address] [place] [address] Social History Tobacco Use Types Packs/Day Years [...] on filedocumented in this encounter Care Teams Warehouse Engineer Relationship Specialty Start Date End Date Natividad Gomez NP [address] [place] [address] PCP - General Nurse Practitioner 12/22/21 documented as of this encounter
--- OUTSIDE RECORDS SUMMARY | 2025-08-27 11:48 | XMS_ITS | Data Portability ---
Author Organization [place] - [facility] Address [address] [place] [id number] Care Team Providers Care Reports Analysis Manager Name Role Phone CEDBLANCA ROSALES Primary Care Provider Assessment Encounter Date Assessment Date Assessment LastModified by Organization Details LastModified Time 12/26/2019 12/26/2019 Overview/History :This is a 64-year-old female that is new to [facility]. She has a medical history significant for coronary artery disease status post VA in the past, hyperlipidemia, hypertension, kidney disease and depression. She contacted her PCP who in turn contact [facility] for evaluation of right [...] I have accessed patient records on the [employer]. This information was pertinent in my medical decision making today. [email or web address] Not available 12/26/2019 16:17:39 01/14/2021 01/14/2021 Time [...] intact as this was requested by patient's type bar and segment assembler Dr. Mensah. No active bleeding during visit [...] Go To The Location Of Their Choice, [address] 17:14:27 bun (blood urea nitrogen), serum or [...] By Organization Details Last Modified Time 12/26/2019 [id number] Patient given pe r discharge instructions, in the setting of coronavirus pandemic woman brought into home. [email or web address] Not available 12/26/2019 16:18:13 01/14/2021 [id number] [facility] came to your home to evaluate you [...] now. We liz blood to send to [facility]. We also ordered tests that your Kidney doctor wanted. - Dr Mensah will get a copy of these results. Please follow up with your PCP and make sure you check your blood pressure daily. If you experience any worsening bleeding, headache, chest pain or feeling worse, go to the emergency department,. [facility]. We cannot always find the exact [...] in your condition between 8am-10pm, please call [facility] at [phone] to help navigate your care. Not available [...] Name and Address Organization Details Recorded Time 01405 Product containin g penicilli n (product) medicatio n Not available Not available Not available 12/26/2019 80169 8001 SNOMED BEBA LANG NP [address] [place], [address], [place] [facility] 15:36:27 78843 codeine medicatio n Not available Not available Not available 12/26/2019 2670 RxNorm BEBA LANG NP [address] [place], [address], [place] [facility] [...] Not Available Vitals Date Recorded Oxygen saturation Body temperature Respiratory rate Heart rate Systolic And Diastolic Provider Name and Address Organization Details Last Updated DateTime 0 98 % 96.8 [degF] 18 /min 92 /min 172/106 mm[Hg] Not Available [facility] 0 15:40:33 Date Recorded Respiratory rate Heart rate Oxygen saturation Body temperature Systolic And Diastolic Provider Name and Address Organization Details Last Updated DateTime 1 20 /min 68 /min 98 % 98.4 [degF] 180/120 mm[Hg] Not Available [facility] 1 14:59:30 Social History Question Answer Notes LastModified by Organizat ion Details LastModified Time Tobacco Smoking Status Current Every Day Smoker BEBA LANG NP [address] [place], [address], [place] [facility] 12/26/2019 15:38:45 Within The Past 12 Months, Has It Happened That The Food You Bought Just Didn't Last And You Didn't Have Money To Get More. No [email or web address] Information not available 12/26/2019 Within The Past 12 Months, Have You Worried That Your Food Would Run Out Before You Got Money To Buy More. No [email or web address] Information not available 12/26/2019 Fall Risk: Do You Feel Unsteady When Standing Or Walking? No [email or web address] Information not available 12/26/2019 We Know That How And When People Interact With Friends And Family Can Be Very Different From Person To Person. How Often Do You Have The Opportunity To See Or Talk To People That You Care About And Feel Close To? (Ex: Talking To Friends On The Phone Or Visiting Friends Or Family Or Going To [employer] Or Club Meetings) Choose Not To Answer This Question [email or web address] Information not available 12/26/2019 Excessive Alcohol Or Drug Use No [email or web address] Information not available 12/26/2019 We Know From Many Of Our Patients That Covering All Of Their Costs Can Be Difficult At Times. This Can Cause Stress And Impact Health. In The Past Year, Have You Been Unable To Get Any Of The Following When It Was Really Needed? No [email or web address] Information not available 12/26/2019 What Is Your Housing Situation Today? I Have Housing [email or web address] Information not available 12/26/2019 Would You Like Help Connecting To Resources? None [email or web address] Information not available 12/26/2019 How Much Tobacco Do You Smoke? 1 PPW [email or web address] Information not available 12/26/2019 Sex: Unknown Functional Status None recorded. Mental Status None recorded. Family History Nothing Reported. Medical History Condition Response Coronary Artery Disease Y Depression Y COPD N Cancer N Stroke N High Cholesterol Y Kidney Disease Y Diabetes N Asthma N Pulmonary Embolism N Hypertension Y Gynecological HistoryNo gynecological history recorded. Obstetrics History GPAL:G 0 P 0 0 0 0 Past Encounters Encounter ID Performer Location Encounter Start Date Encounter Closed Date Diagnosis/Indication Diagnosis SNOMED-CT Code Diagnosis ICD10 Code Diagnosis IMO Codes Diagnosis Note [id number] BEBA LANG NP [facility] [address] [place] [address] 12/26/2019 15:35:17 12/26/2019 19:37:25 Edema of lower extremity 309024440 R60.0 [id number] CYNTHIA SHAFFER NP [facility] [address] [place] [address] 01/14/2021 14:48:38 01/18/2021 22:32:16 Anterior epistaxis 983923610 R04.0 Hypertensive disorder 38 093132 I10 Health Concerns Section Related Observation LastModified by Organization Detai ls LastModified Time None Recorded Concern Status LastModified by Organization Details LastModified Time None Recorded Advance Directives Directive None Recorded Payers Insurance Date Sequence Insurance Name Policy Number Policy Diaz Covered Member ID Diaz Member ID Guarantor Name 01/14/2021 2 [place] [facility] Jessica Giang [id number] Jessica Meyerdon 12/26/2019 1 *SELF PAY* Jessica Giang [id number] Jessica Rahat 01/14/2021 1 [place] B[place] [facility] Jessica Arnoldo MeyerRahat [id number] [place] Giang 01/19/2021 1 [place] [facility] Jessica Giang [id number] Jessica Giang Notes Date Note Type Note Provider Name and Address Organization Details Recorded Time 12/26/2019 text/html General HPI Temp late - DHReported by Patient 13. This is a 64-year-old female that is [facility] to [facility]. She has a medical history significant for coronary artery disease with heart attack in the past, hyperlipidemia, depression, chronic kidney disease and hypertension for which she follows with nephrology. She also had gastric banding surgery in the past. She contacted her PCP for concerns of right lower extremity swelling, her PCP office arrange for [facility] did come out and [...] remember. BEBA LANG, OSMANY [address], [place], [address], [place] [facility] 12/26/2019 16:18:30 01/14/2021 text/html [...] her, CYNTHIA SHAFFER, OSMANY [address], [place], [address], [place] [facility] 01/14/2021 19:53:15 OBGyn Episode No OBEpisode recorded.
--- OUTSIDE RECORDS SUMMARY | 2025-08-27 11:48 | XMS_ITS | Encounter Summary ---
Author Organization [facility], Address [address] [place] [address] Phone Care Team Providers Care Bowling Floor Manager Name Role Phone Natividad Gomez FAMILY SERVICE COUNSELOR Primary Care Provider [phone] Encounter Details Date Type Department Care Team (Late st Contact Info) Description 10/04/2024 Documentation Only [facility], [address] [place] [address] Dominga Torres [place] [address] [place] [phone] Social History Tobacco Use Types Packs/Day Years [...] on filedocumented in this encounter Care Teams Bowling Floor Manager Relationship Specialty Start Date End Date Natividad Gomez NP [address] [place] [address] PCP - General Nurse Practitioner 12/22/21 documented as of this encounter
--- OUTSIDE RECORDS SUMMARY | 2025-08-27 11:48 | XMS_ITS | Clinical Summary ---
Author Organization [facility] ity Address [address] [place] [address] Care Team Providers Care Microsoft Windows Engineer Name Role Phone Unavailable Primary Care Provider [...]
--- OUTSIDE RECORDS SUMMARY | 2025-08-27 11:48 | XMS_ITS | Clinical Summary ---
Author Organization [facility], Address [address] [place] [address] [place] [address] Phone Care Team Providers Care Film Projector Operator Name Role Phone JasonNatividad jj OSMANY Primary Care Provider [phone] Allergies Active Allergy Reactions Criticality Noted Date [...] topic Insurance Medicare Medicaid [place] Care Teams Film Projector Operator Relationship Specialty Start Date End Date [facility]ividad [facility] [place] [address] PCP - General Nurse Practitioner 12/22/21
== END 2025-08-27 10:06 | disposition home or self-care (01) ==
LOC: HO.HMGAL 10:06
PROVIDERS: PCP Nurse Practitioner Family; Visit Provider Registered Nurse Emergency
DX: J30.89 Other allergic rhinitis (principal)
CPT/HCPCS: 95117; 95165

== ENCOUNTER 2025-09-03 10:02 | Outpatient (AMB) | payer MEDICARE, MEDICAID, SELFPAY ==
--- OUTSIDE RECORDS SUMMARY | 2025-09-03 11:18 | XMS_ITS | Clinical Summary ---
Author Organization [facility] ity Address [address] [place] [address] Care Team Providers Care Automobile Club Membership Sales Agent Name Role Phone Unavailable Primary Care Provider [...]
== END 2025-09-03 10:02 | disposition home or self-care (01) ==
LOC: HO.HMGAL 10:02
PROVIDERS: PCP Nurse Practitioner Family; Visit Provider Registered Nurse Emergency
DX: J30.89 Other allergic rhinitis (principal)
CPT/HCPCS: 95117; 95165

== ENCOUNTER 2025-09-10 10:09 | Outpatient (AMB) | payer MEDICARE, MEDICAID, SELFPAY | END 2025-09-10 10:09 | disposition home or self-care (01) | LOC: HO.HMGAL 10:09 | PROVIDERS: PCP Nurse Practitioner Family; Visit Provider Registered Nurse Emergency | DX: J30.89 Other allergic rhinitis (principal) | CPT/HCPCS: 95117; 95165 ==

== ENCOUNTER 2025-09-17 09:57 | Outpatient (AMB) | payer MEDICARE, MEDICAID, SELFPAY ==
--- OUTSIDE RECORDS SUMMARY | 2025-09-17 12:02 | XMS_ITS | Clinical Summary ---
Author Organization [facility] ity Address [address] [place] [address] Care Team Providers Care Food Expeditor Name Role Phone Unavailable Primary Care Provider [...]
== END 2025-09-17 09:59 | disposition home or self-care (01) ==
LOC: HO.HMGAL 09:57
PROVIDERS: PCP Nurse Practitioner Family; Visit Provider Registered Nurse Emergency
DX: J30.89 Other allergic rhinitis (principal)
CPT/HCPCS: 95117; 95165

== ENCOUNTER 2025-10-01 09:54 | Outpatient (AMB) | payer MEDICARE, MEDICAID, SELFPAY ==
--- OUTSIDE RECORDS SUMMARY | 2025-10-01 10:43 | XMS_ITS | Encounter Summary ---
Author Organization [facility], Address [address] [place] [address] Phone Care Team Providers Care Marketing Consultant Name Role Phone Natividad Gomez DISTRESSER Primary Care Provider [phone] Encounter Details Date Type Department Care Team (Late st Contact Info) Description 10/03/2024 Documentation Only [facility], [address] [place] [address] [address] [place] [address] [place] [phone] Social History Tobacco Use Types Packs/Day Years [...] on filedocumented in this encounter Care Teams Marketing Consultant Relationship Specialty Start Date End Date Natividad Gomez NP [address] [place] [address] PCP - General Nurse Practitioner 12/22/21 documented as of this encounter
--- OUTSIDE RECORDS SUMMARY | 2025-10-01 10:43 | XMS_ITS | Clinical Summary ---
Author Organization [facility], Address [address] [place] [address] [place] [address] Phone Care Team Providers Care Manager Military Name Role Phone Jason, Natividad OSMANY Primary Care Provider [phone] Allergies Active Allergy Reactions Criticality Noted Date [...] Medicaid [place] Care Teams Manager Military Relationship Specialty Start Date End Date Natividad Gomez [facility] [place] [address] PCP - General Nurse Practitioner 12/22/21
--- OUTSIDE RECORDS SUMMARY | 2025-10-01 10:43 | XMS_ITS | Encounter Summary ---
Author Organization [facility], Address [address] [place] [address] Phone Care Team Providers Care Cage Cashier Name Role Phone Natividad Gomez CERTIFIED LEGAL SECRETARY SPECIALIST Primary Care Provider [phone] Encounter Details Date Type Department Care Team (Late st Contact Info) Description 10/04/2024 Documentation Only [facility], [address] [place] [address] Dom[address] Torres [place] [address] [place] [phone] Social History Tobacco Use Types Packs/Day Years [...] on filedocumented in this encounter Care Teams Cage Cashier Relationship Specialty Start Date End Date Natividad Gomez NP [address] [place] [address] PCP - General Nurse Practitioner 12/22/21 documented as of this encounter
--- OUTSIDE RECORDS SUMMARY | 2025-10-01 10:43 | XMS_ITS | Clinical Summary ---
Author Organization [facility] ity Address [address] [place] [address] Care Team Providers Care Bryologist Name Role Phone Unavailable Primary Care Provider [...]
== END 2025-10-01 09:56 | disposition home or self-care (01) ==
LOC: HO.HMGAL 09:54
PROVIDERS: PCP Nurse Practitioner Family; Visit Provider Registered Nurse Emergency
DX: J30.89 Other allergic rhinitis (principal)
CPT/HCPCS: 95117; 95165